=== PATIENT | male | born 1955 | race Caucasian/White ===

== ENCOUNTER 2017-10-29 08:22 | Inpatient (IN) | payer BC, OTHER ==
[2017-10-29] MEDS ORDERED: METOPROLOL TAR 50 MG TAB ONE ×2 (08:55→10:38)
[2017-10-29] MEDS ORDERED: METOPROLOL TARTRATE 5 MG/5 ML INJ IV ONE ×3 (08:55→09:32)
[2017-10-29 09:15] LABS: Absolute Lymphocytes (CBC) 2.4 K/uL (0.7-4.9); Absolute Monocytes 0.9 K/uL (0.1-1.3); Absolute Neutrophil 9.4 K/uL (1.8-8.0); Basophils % 0.8 % (0-1.3); Eosinophils % 0.8 % (0-4.4); Hematocrit 51.7 % (39.6-49.0); Lymphocytes % 18.5 % (15.3-44.8); MCH 29.5 pg (27.0-35.0); MCV 89.1 fL (80-100); Monocytes % 7.3 % (3.3-12.3)
[2017-10-29] MEDS ORDERED: ENOXAPARIN 100 MG/ML SYR SQ ONE (09:19)
[2017-10-29] MEDS ORDERED: NA CHLORIDE 0.9% 500 ML ONE ×2 (09:19→11:28)
[2017-10-29 09:21] LABS: Protime INR 1.27
[2017-10-29 09:25] LABS: Bicarbonate 26 mEq/L (21-31); Glucose Level 165 mg/dL (65-120); Potassium 3.9 mEq/L (3.6-5.0); Sodium Level 138 mEq/L (135-145)
[2017-10-29 09:31] LABS: ALT/SGPT 31 IU/L (10-60); AST/SGOT 21 IU/L (10-42); Albumin 4.2 g/dL (3.2-5.5); Alkaline Phosphatase 67 IU/L (42-121); BUN Blood Urea Nitrogen 14 mg/dL (6-20); Bilirubin Direct 0.1 mg/dL (0-0.2); Bilirubin Total 0.9 mg/dL (0.3-1.2); Creatine Phosphokinase 63 IU/L (22-269); Magnesium 1.7 mg/dL (1.8-2.5); Protein, Total 7.9 g/dL (6.0-8.3)
[2017-10-29 09:34] LABS: CKMB Creatine Kinase MB 1.6 ng/ml (0.3-4.0)
--- NOTE | 2017-10-29 09:39 | P.HP ---
Certification for Inpatient With expected LOS: >2 Midnights Patient will require the following post-hospital care: None Practitioner: I am a practitioner with admitting privileges, knowledge of patient current condition, hospital course, and medical plan of care. Services: Services provided to patient in accordance with Admission requirements found in Title 42 Section 412.3 of the Code of Federal Regulations <Ariadna Rojo - Last Filed: 10/29/17 09:54> Patient admitted to: Inpatient With expected LOS: >2 Midnights Patient will require the following post-hospital care: None Practitioner: I am a practitioner with admitting privileges, knowledge of patient current condition, hospital course, and medical plan of care. Services: Services provided to patient in accordance with Admission requirements found in Title 42 Section 412.3 of the Code of Federal Regulations <Kostas Vera - Last Filed: 10/29/17 14:10> Patient History Date of Service: 10/29/17 Primary Care Provider: Dr. Anguiano Reason for admission: New onset A. fib History of Present Illness: Pt states he went to his PCP for a "chest cold". Pt was told at that time that his heart rate was irregular. Pt give Rx for Z-max and was advised to go to ED. Pt states his cough is improving but he has taken his blood pressure several times and noted his HR to be consistently in the 140s Home medications list reviewed: Yes (Anaphylaxis to Morphine) - Past Medical/Surgical History Has patient received pneumonia vaccine in the past: No Diabetic: No -: Hypertension -: "borderline" DM -: Hyperlipidemia -: right great toe surgery Psychosocial/ Personal History: Pt is and lives in [place]. Pt retired last year. Active lifestyle. Prefers not to fly. - Family History Family History: Reviewed- Non-Contributory (Pt was adopted at . Recently met a Sister. States family hx of a. fib but otherwise not much information. Father at 86yo and Mother fell and had head bleed and at 80yo) - Social History Smoking Status: Never smoker Alcohol use: Yes CD- Drugs: No Caffeine use: Yes Place of Residence: Home <Ariadna Rojo - Last Filed: 10/29/17 09:54> Date of Service: 10/29/17 History of Present Illness: 62-year-old male presented emergency room with shortness of breath and irregular heartbeat. Patient recently evaluated by his PCP last week. Told that he had an upper respiratory infection. He was given Zithromax. His shortness of breath and cough worsened. Blood pressures were elevated at home. Heart rate also elevated. Patient came to the ER for further evaluation. In the ER patient was found to be in new onset atrial fibrillation with RVR. Rate around 150. Patient given multiple doses of beta-oliver therapy. Chest x- ray shows no pneumonia. Patient was admitted for treatment. Home medications list reviewed: Yes - Past Medical/Surgical History Has patient received pneumonia vaccine in the past: No Diabetic: No -: Pre diabetes -: Obesity - Family History Mother History Unknown: Yes -: Heart disease Father History Unknown: Yes -: Cancer Notes: Prostate/bladder CA - Social History Smoking Status: Never smoker Alcohol use: Yes CD- Drugs: No Caffeine use: Yes Place of Residence: Home <Kostas Vera - Last Filed: 10/29/17 14:10> Allergies morphine Allergy (Verified 10/29/17 12:14) Unknown Home Medications: Aspirin [Aspirin EC 81 MG] 1 tab PO DAILY 10/29/17 Atorvastatin Calcium [Lipitor] 40 mg PO BEDTIME 10/29/17 Azithromycin Tab [Zithromax*] 1 tab PO DAILY 10/29/17 Multivitamin [One Daily Multivitamin] 1 each PO DAILY 10/29/17 Hope-3/Dha/Epa/Fish Oil [Fish Oil 500 mg Softgel] 1 cap PO DAILY 10/29/17 Review of Systems General: Sweats, Malaise Eyes: Unremarkable ENT: Ear Pain, Nose Congestion Respiratory: Cough, Other (recent productive cough) Cardiovascular: Palpitations Gastrointestinal: Unremarkable Genitourinary: Unremarkable Musculoskeletal: Unremarkable Integumentary: Unremarkable Neurological: Unremarkable Lymphatics: Unremarkable <Ariadna Rojo - Last Filed: 10/29/17 09:54> General: Sweats, Malaise Eyes: Unremarkable ENT: Ear Pain, Nose Congestion Respiratory: Cough, Shortness of Breath, Other Cardiovascular: Palpitations Gastrointestinal: Unremarkable Genitourinary: Unremarkable Musculoskeletal: Unremarkable Integumentary: Unremarkable Neurological: Unremarkable Lymphatics: Unremarkable <Kostas Vera - Last Filed: 10/29/17 14:10> Physical Examination - Vital Signs Temperature: 98.2 F Blood Pressure: 141/115 Pulse: 146 Respirations: 20 Pulse Ox (%): 98 - Physical Exam General: In no apparent distress, Other (mildly diaphoretic) HEENT: Atraumatic, Normocephalic, Mucous membr. moist/pink Neck: Supple, JVD not distended Respiratory: Clear to auscultation bilaterally, Normal air movement Cardiovascular: No edema, Normal pulses, Other (RVR), Irregular heart rate/ rhythm Capillary refill: <2 Seconds Gastrointestinal: Normal bowel sounds, Soft and benign, Non-distended Musculoskeletal: No clubbing, No erythema Integumentary: No rashes, No breakdown Neurological: Normal gait Lymphatics: No axilla or inguinal lymphadenopathy External genitalia: Deferred Rectal: Deferred - Studies Laboratory Data (last 24 hrs) 10/29/17 08:50: PT 15.0 H, INR 1.27, APTT 33.4 10/29/17 08:50: WBC 12.9 H, Hgb 17.1, Hct 51.7 H, Plt Count 266 10/29/17 08:50: Sodium 138, Potassium 3.9, BUN 14, Creatinine 0.83, Glucose 165 H, Magnesium 1.7 L, Total Bilirubin 0.9, AST 21, ALT 31, Alkaline Phosphatase 67 <Ariadna Rojo - Last Filed: 10/29/17 09:54> - Physical Exam General: Alert, In no apparent distress, Oriented x3, Cooperative, Other HEENT: Atraumatic, Normocephalic, Mucous membr. moist/pink Neck: Supple, JVD not distended Respiratory: Crackles/rales (Crackles to the bases bilateral) Cardiovascular: Other, Irregular heart rate/rhythm (Atrial fibrillation rate around 120) Capillary refill: <2 Seconds Gastrointestinal: Normal bowel sounds, Soft and benign, Non-distended, No ascites, No tenderness, No masses, No rebound, No guarding Musculoskeletal: No clubbing, No erythema, No tenderness, No warmth Integumentary: No rashes, No breakdown, No tenderness/swelling, No erythema, No warmth, No cyanosis Neurological: Normal gait, Normal speech, Normal strength at 5/5 x4 extr, Normal tone, Normal affect Lymphatics: No axilla or inguinal lymphadenopathy - Studies Laboratory Data (last 24 hrs) 10/29/17 08:50: PT 15.0 H, INR 1.27, APTT 33.4 10/29/17 08:50: WBC 12.9 H, Hgb 17.1, Hct 51.7 H, Plt Count 266 10/29/17 08:50: B-Natriuretic Peptide 150 H 10/29/17 08:50: Sodium 138, Potassium 3.9, BUN 14, Creatinine 0.83, Glucose 165 H, Magnesium 1.7 L, Total Bilirubin 0.9, AST 21, ALT 31, Alkaline Phosphatase 67 <Kostas Vera - Last Filed: 10/29/17 14:10> Assessment and Plan - Problems (Diagnosis) (1) Atrial fibrillation Onset Date: Unknown Current Visit: Yes Status: Acute Plan: Metoprolol 5mg IV x 3 in ED. No immediate change. Will transition to po. Lovenox 100mg SC in ED. Will contine. TSH eval pending, will monitor results. Consult Cardiology. Qualifiers: Atrial fibrillation type: persistent Qualified Code(s): I48.1 - Persistent atrial fibrillation (2) Upper respiratory infection Onset Date: ~10/26/17 Current Visit: Yes Status: Acute Plan: Continue antibiotics. Pt has taken three days of Z-max po, feels improved since initial dose. Will finish z-max course. No pneumonia documented on Chest film. Advanced imaging results pending. Qualifiers: URI type: unspecified viral URI Qualified Code(s): J06.9 - Acute upper respiratory infection, unspecified (3) Hypertension Current Visit: Yes Status: Acute Plan: Will start on Metoprolol 50mg po as reassess Qualifiers: Hypertension type: essential hypertension Qualified Code(s): I10 - Essential (primary) hypertension - Plan Will monitor inpatient. Consult Cardiology. Start pt on stable hypertension treatment plan. Discharge to home with stable v.s. and anticoagulation with Cardiology follow up - Advance Directives Does patient have a Living Will: No Does patient have a Durable POA for Healthcare: No - Code Status/Comfort Care Code Status Assessed: Yes Code Status: Full Code Time Spent Managing Pts Care (In Minutes): 30 <Ariadna Rojo - Last Filed: 10/29/17 09:54> - Problems (Diagnosis) (1) Hyperlipidemia Current Visit: Yes Status: Chronic Plan: Will continue with his medication. Will check fasting lipid panel. Qualifiers: Hyperlipidemia type: unspecified Qualified Code(s): E78.5 - Hyperlipidemia , unspecified (2) Palpitation Current Visit: Yes Status: Acute Plan: Palpitations secondary to new onset atrial fibrillation with RVR. Patient given multiple doses of IV in beta-olievr. Case discussed at length with cardiology. Patient be started on Betapace 80 mg 1 pill twice daily. Lovenox 1 milligram/kilogram subcu twice daily has been initiated. Will continue monitor patient closely. Will monitor on telemetry. Will order echocardiogram. Will maintain sats above 90%. Will monitor electrolytes closely. (3) Shortness of breath Current Visit: Yes Status: Acute Plan: Continue as above. Suspect possible CHF. Will provide Lasix IV twice daily. Will check echocardiogram. Will recheck chest x-ray in the morning. Will maintain sats above 90%. (4) CHF (congestive heart failure) Current Visit: Yes Status: Suspected Plan: Suspect CHF. Will start IV Lasix. Will teach on 1500 cc per day fluid restriction. Will recheck chest x-ray in the morning. Echocardiogram ordered. Qualifiers: Heart failure type: systolic Heart failure chronicity: acute on chronic Qualified Code(s): I50.23 - Acute on chronic systolic (congestive) heart failure (5) Obesity Current Visit: Yes Status: Chronic Plan: Will teach on lifestyle modification education. Qualifiers: Obesity type: due to excess calories Obesity classification: adult class 1 (BMI 30 - 34.9) Serious obesity comorbidity presence: with serious comorbidity Body mass index: BMI 31.0-31.9 Qualified Code(s): E66.09 - Other obesity due to excess calories; Z68.31 - Body mass index (BMI) 31.0-31.9, adult (6) Atrial fibrillation Onset Date: Unknown Current Visit: Yes Status: Acute Plan: New onset atrial fibrillation with RVR. Patient given IV metoprolol in ER. Case discussed with cardiology. Will start Betapace 80 mg 1 pill twice daily. Lovenox 1 milligram/kilogram subcu twice daily initiated. Will check lab. Echocardiogram ordered. Await further recommendations from cardiology. Will monitor closely on telemetry. At discharge if patient stable on Betapace, he will continue with medication. Patient will likely need chronic anti coagulation therapy. Qualifiers: Atrial fibrillation type: persistent Qualified Code(s): I48.1 - Persistent atrial fibrillation (7) Hypertension Current Visit: Yes Status: Acute Plan: Patient started on sotalol for atrial fibrillation. Will monitor blood pressures closely Qualifiers: Hypertension type: essential hypertension Qualified Code(s): I10 - Essential (primary) hypertension (8) Upper respiratory infection Onset Date: ~10/26/17 Current Visit: Yes Status: Acute Plan: Patient may have had viral upper respiratory infection. Will check for influenza and Streptococcus. Will discontinue Zithromax since the patient will be on sotalol. Will recheck chest x-ray in the morning. Patient may have underlying CHF. Patient being treated for CHF at this time. Patient with atrial fibrillation. Qualifiers: URI type: unspecified viral URI Qualified Code(s): J06.9 - Acute upper respiratory infection, unspecified - Plan Continue as above. Discharge Plan: Home Plan to discharge in: 48 Hours - Advance Directives Does patient have a Living Will: No Does patient have a Durable POA for Healthcare: No - Code Status/Comfort Care Code Status Assessed: Yes Code Status: Full Code Time Spent Managing Pts Care (In Minutes): 55 <Kostas Vera - Last Filed: 10/29/17 14:10>
--- NOTE | 2017-10-29 09:58 | EDPHYS ---
Physician Documentation [facility] Name: Onesimo Estes Age: 62 yrs Sex: Male : 1955 Arrival Date: 10/29/2017 Time: 08:24 Bed 5 Private MD: Mikal Anguiano E ED Physician Villa Presley HPI: 10/29 08:53 This 62 yrs old Male presents to ER via Ambulatory with complaints of Ear cp Pain, Irregular Heart Beat. 08:53 The patient presents with a history of irregular heart beat. cp 08:53 Context: The symptoms occur without known cause. Onset: The symptoms/episode cp began/occurred at an unknown time. Duration: The patient or guardian reports a single episode, that is still ongoing, and unchanged. Associated signs and symptoms: Pertinent positives: cough, right ear pain, Pertinent negatives: chest pain, fever, syncope, near-syncope, abdominal pain. Severity of symptoms: in the emergency department the symptoms are unchanged. The patient has not experienced similar symptoms in the past. Historical: - Allergies: 08:51 Morphine; iw - Immunization history:: Adult Immunizations unknown. - Ebola Screening: : No symptoms or risks identified at this time. - Social history:: Smoking status: Patient/guardian denies using tobacco, Patient uses alcohol, on a daily basis. claims drinking about a 6 pack/day. ROS: 09:01 Eyes: Negative for injury, pain, redness, and discharge. cp 09:01 Constitutional: Negative for body aches, chills, fever, poor PO intake. 09:01 ENT: Positive for drainage from ear(s), ear pain, Negative for sore throat, difficulty swallowing, difficulty handling secretions. 09:01 Cardiovascular: Positive for palpitations, Negative for chest pain, edema. 09:01 Respiratory: Positive for cough, with no reported sputum, Negative for shortness of breath, wheezing. 09:01 Abdomen/GI: Negative for abdominal pain, nausea, vomiting, and diarrhea, constipation, black/tarry stool, rectal bleeding. 09:01 Back: Negative for pain at rest, pain with movement, radiated pain. 09:01 : Negative for urinary symptoms. 09:01 Skin: Negative for cellulitis, rash. 09:01 Neuro: Negative for altered mental status, dizziness, headache, syncope, near syncope, weakness. 09:01 All other systems are negative. Exam: 08:53 ECG was reviewed by the Attending Physician. cp 09:05 Constitutional: The patient appears in no acute distress, alert, awake, cp non-diaphoretic, non-toxic, well developed, well nourished. 09:05 Head/Face: Normocephalic, atraumatic. Eyes: Pupils equal round and reactive to light, cp extra-ocular motions intact. Lids and lashes normal. Conjunctiva and sclera are non-icteric and not injected. Cornea within normal limits. Periorbital areas with no swelling, redness, or edema. ENT: Nares patent. No nasal discharge, no septal abnormalities noted. Tympanic membranes are normal and external auditory canals are clear. Oropharynx with no redness, swelling, or masses, exudates, or evidence of obstruction, uvula midline. Mucous membranes moist. Neck: Trachea midline, no thyromegaly or masses palpated, and no cervical lymphadenopathy. Supple, full range of motion without nuchal rigidity, or vertebral point tenderness. No Meningismus. Chest/axilla: Normal chest wall appearance and motion. Nontender with no deformity. No lesions are appreciated. 09:05 Cardiovascular: Rate: tachycardic, actual rate is 143 bpm, Rhythm: regular, Pulses: Pulses are 2+ in right radial artery and left radial artery. Edema: is not appreciated, JVD: is not appreciated. 09:05 Respiratory: the patient does not display signs of respiratory distress, Respirations: normal, no use of accessory muscles, no retractions, no splinting, no tachypnea, labored breathing, is not present, Breath sounds: are clear throughout, no decreased breath sounds, no stridor, no wheezing. 09:05 Abdomen/GI: Inspection: abdomen appears normal, Bowel sounds: active, all quadrants, cp Palpation: abdomen is soft and non-tender, in all quadrants. 09:05 Back: pain, is absent, ROM is normal. 09:05 Musculoskeletal/extremity: Exam is negative for calf tenderness, edema, injury. 09:05 Skin: cellulitis, is not appreciated, no rash present. 09:05 Neuro: Orientation: to person, place \T\ time. Mentation: lucid, able to follow commands, Cerebellar function: is grossly normal, Motor: moves all fours, strength is normal, Sensation: is normal. Vital Signs: 08:48 BP 141 / 115; Pulse 146; Resp 20 S; Pulse Ox 98% on R/A; iw 08:50 BP 158 / 115; Pulse 146; Resp 16; Pulse Ox 98% ; jl7 09:00 BP 139 / 115; Pulse 143; Resp 16; Pulse Ox 98% ; jl7 09:05 Temp 98.2(O); Weight 108.86 kg (R); jl7 09:15 BP 153 / 125; Pulse 144; Resp 16; Pulse Ox 98% ; jl7 09:24 BP 143 / 117; Pulse 141; Resp 16; Pulse Ox 97% ; jl7 09:30 BP 138 / 110; Pulse 141; Resp 16; Pulse Ox 97% ; jl7 10:30 BP 147 / 125; Pulse 135; Resp 18; Pulse Ox 98% ; ae1 10:45 BP 144 / 110; Pulse 130; Resp 18; Pulse Ox 98% ; ae1 11:00 BP 140 / 101; Pulse 138; Resp 18; Pulse Ox 97% ; ae1 11:15 BP 127 / 108; Pulse 136; Resp 18; Pulse Ox 98% ; jl7 11:30 BP 147 / 114; Pulse 137; Resp 18; Pulse Ox 98% ; jl7 11:45 BP 135 / 96; Pulse 139; Resp 16; Pulse Ox 98% ; jl7 MDM: 08:30 Patient medically screened. 09:05 Data interpreted: child monitor: rate is 146 beats/min, rhythm is atrial flutter, cp Pulse oximetry: on room air is 98 %. Interpretation: normal. Plan: O2 by NC applied. Test interpretation: by ED physician or midlevel provider: ECG. 09:55 Data reviewed: vital signs, nurses notes, lab test result(s), EKG, radiologic studies, cp plain films. 09:55 Physician consultation: Ariadna JACOBO was contacted at 09:55, regarding cp admission, to the telemetry unit. patient's condition, and will see patient in ED, shortly. 10/29 08:43 Order name: Basic Metabolic Panel 10/29 08:43 Order name: BNP; Complete Time: 09:45 cp 10/29 09:45 Interpretation: Abnormal: BNP 150. 10/29 08:43 Order name: CBC with Diff; Complete Time: 09:31 10/29 09:46 Interpretation: Normal except: WBC 12.9; RBC 5.80; HCT 51.7. cp 10/29 08:43 Order name: Ckmb cp 10/29 08:43 Order name: CPK cp 10/29 08:43 Order name: LFT's cp 10/29 08:43 Order name: Magnesium cp 10/29 09:46 Interpretation: Abnormal: MG 1.7. cp 10/29 08:43 Order name: PT-INR; Complete Time: 09:31 cp 10/29 08:43 Order name: Ptt, Activated; Complete Time: 09:31 cp 10/29 08:43 Order name: Troponin (emerg Dept Use Only); Complete Time: 09:45 cp 10/29 09:45 Interpretation: TROPED < 0.03; Reviewed. cp 10/29 08:43 Order name: XRAY Chest (1 view); Complete Time: 11:46 cp 10/29 08:43 Order name: TSH cp 10/29 08:43 Order name: T3 Free cp 10/29 09:32 Order name: CT Chest For PE Angio; Complete Time: 10:34 snw 10/29 08:43 Order name: EKG; Complete Time: 08:44 cp 10/29 08:43 Order name: Cardiac monitoring; Complete Time: 11:04 cp 10/29 08:43 Order name: EKG - Nurse/Tech; Complete Time: 11:04 cp 10/29 08:43 Order name: IV Saline Lock; Complete Time: 11:04 cp 10/29 08:43 Order name: Labs collected and sent; Complete Time: 11:04 cp 10/29 08:43 Order name: O2 Per Protocol; Complete Time: 11:04 cp 10/29 08:43 Order name: O2 Sat Monitoring; Complete Time: 11:04 cp EC:53 Rate is 147 beats/min. Rhythm is regular. QRS interval is normal. QT interval is cp normal. Interpreted by me. Reviewed by me. Administered Medications: 08:51 Drug: Metoprolol 50 mg Route: PO; jl7 11:04 Follow up: Response: No adverse reaction; No change in condition ae1 08:53 Drug: Metoprolol 5 mg Route: IVP; Site: right antecubital; jl7 11:03 Follow up: Response: No adverse reaction; No change in condition ae1 09:21 Drug: NS 0.9% 500 ml Route: IV; Rate: bolus; Site: right antecubital; ae1 11:34 Follow up: IV Status: Completed infusion jl7 09:21 Drug: Metoprolol 5 mg Route: IVP; Site: right antecubital; ae1 09:24 Drug: Lovenox 1 mg/kg Route: Sub-Q; Site: left lower abdomen; ae1 11:03 Follow up: Response: No adverse reaction ae1 09:30 Drug: Metoprolol 5 mg Route: IVP; Site: right antecubital; jl7 11:03 Follow up: Response: No adverse reaction; No change in condition ae1 10:38 Drug: Metoprolol 50 mg Route: PO; jl7 11:02 Follow up: Response: No adverse reaction ae1 10:40 Drug: LevaQUIN 750 mg Volume: 150 ml; Route: IVPB; Infused Over: 90 mins; Site: right jl7 antecubital; 12:01 Follow up: IV Status: Completed infusion jl7 11:02 Not Given (Pt admitted to floor): NS 0.9% 1000 ml IV at 100 ml/hr continuous ae1 11:03 Not Given (pt admitted to floor): NS 0.9% 500 ml IV at bolus once ae1 11:34 Not Given (Physician Discretion): Cardizem 10 mg IVP once; Over 2 minutes jl7 11:34 Drug: NS 0.9% 500 ml Route: IV; Rate: bolus; Site: right antecubital; jl7 12:01 Follow up: IV Status: Completed infusion jl7 11:55 Drug: Betapace 80 mg Route: PO; jl7 12:01 Follow up: Response: Other; Administered at admission jl7 Disposition: 10/29/17 09:57 Hospitalization ordered by Kostas Vera for Inpatient Admission. Preliminary diagnosis is Unspecified atrial flutter. - Bed requested for Telemetry/MedSurg (Inpatient). - Status is Inpatient Admission. jl7 - Condition is Stable. - Problem is new. - Symptoms have improved. UTI on Admission? No Addendum: 11/06/2017 11:52 Co-signature as Attending Physician, Villa Presley MD Available for consultation at p s1 all times. . Signatures: Dispatcher [employer] Luli Levy RN RN Ariadna Pino, PV DESIGN ENGINEER-C PV DESIGN ENGINEER-Csnw Nancy Holguin, RN RN iw [place] PA PA cp Terry Bennett, RN RN ae1 Yomi Moe RN RN jl7 Villa Presley MD MD ps1 Corrections: (The following items were deleted from the chart) 10/29 10:21 09:57 Hospitalization Ordered by Kostas Vera DO for Inpatient Admission. Preliminary dw diagnosis is Unspecified atrial flutter. Bed requested for Telemetry/MedSurg (Inpatient). Status is Inpatient Admission. Condition is Stable. Problem is new. Symptoms have improved. UTI on Admission? No. cp 12:03 10:21 10/29/2017 09:57 Hospitalization Ordered by Kostas Vera DO for Inpatient jl7 Admission. Preliminary diagnosis is Unspecified atrial flutter. Bed requested for Telemetry/MedSurg (Inpatient). Status is Inpatient Admission. Condition is Stable. Problem is new. Symptoms have improved. UTI on Admission? No. dw
--- NOTE | 2017-10-29 09:58 | ER ---
Nurse's Notes [facility] Name: Onesimo Estes Age: 62 yrs Sex: Male : 1955 Arrival Date: 10/29/2017 Time: 08:24 Bed 5 Private MD: Mikal Anguiano E Diagnosis: Unspecified atrial flutter Presentation: 10/29 08:37 Presenting complaint: Patient states: had a chest cold last week, was put on iw azithromycin, has had SOB and also pain in right ear, was told by the doctor that he had irregular heart rate and was told he needed to get it checked out, no hx of Afib. Transition of care: patient was not received from another setting of care. Onset of symptoms was October 26, 2017. Risk Assessment: Do you want to hurt yourself or someone else? Patient reports no desire to harm self or others. Initial Sepsis Screen: Does the patient meet any 2 criteria? No. Patient's initial sepsis screen is negative. Does the patient have a suspected source of infection? No. Patient's initial sepsis screen is negative. Care prior to arrival: None. 08:37 Method Of Arrival: Ambulatory 08:37 Acuity: JOANN 2 iw Historical: - Allergies: 08:51 Morphine; iw - Immunization history:: Adult Immunizations unknown. - Ebola Screening: : No symptoms or risks identified at this time. - Social history:: Smoking status: Patient/guardian denies using tobacco, Patient uses alcohol, on a daily basis. claims drinking about a 6 pack/day. Screenin:40 Abuse screen: Denies threats or abuse. Denies injuries from another. Nutritional jl7 screening: No deficits noted. Tuberculosis screening: No symptoms or risk factors identified. Fall Risk IV access (20 points). Total [place] Fall Scale indicates No Risk (0-24 pts). Assessment: 08:45 General: Appears uncomfortable, Behavior is calm, cooperative, appropriate for age. jl7 Pain: Complains of pain in right ear Pain does not radiate. Pain currently is 1 out of 10 on a pain scale. Quality of pain is described as throbbing, Pain began 2-3 days ago. Is continuous. Neuro: Level of Consciousness is awake, alert, obeys commands, Oriented to person, place, time, situation. Cardiovascular: Denies chest pain, shortness of breath, Heart tones present Skin is clammy and diaphoretic . Rhythm is atrial flutter 2:1 Chest pain is denied. Respiratory: Airway is patent Respiratory effort is even, unlabored, Respiratory pattern is regular, symmetrical. GI: No signs and/or symptoms were reported involving the gastrointestinal system. : No signs and/or symptoms were reported regarding the genitourinary system. EENT: Reports pain in right ear. Derm: Skin is clammy, diaphoretic, Skin is flushed, Skin temperature is warm. Musculoskeletal: No signs and/or symptoms reported regarding the musculoskeletal system. 10:00 Reassessment: No changes from previously documented assessment. Patient and/or family jl7 updated on plan of care and expected duration. Pain level reassessed. Patient is alert, oriented x 3, equal unlabored respirations, skin warm/dry/pink. 11:20 Reassessment: Ariadna Rojo NP ordered to hold Cardizem and administer one more [address] jl[address] NS bolus[address]. Kern will manage medications from this point. Vital Signs: 08:48 BP 141 / 115; Pulse 146; Resp 20 S; Pulse Ox 98% on R/A; iw 08:50 BP 158 / 115; Pulse 146; Resp 16; Pulse Ox 98% ; jl7 09:00 BP 139 / 115; Pulse 143; Resp 16; Pulse Ox 98% ; jl7 09:05 Temp 98.2(O); Weight 108.86 kg (R); jl7 09:15 BP 153 / 125; Pulse 144; Resp 16; Pulse Ox 98% ; jl7 09:24 BP 143 / 117; Pulse 141; Resp 16; Pulse Ox 97% ; jl7 09:30 BP 138 / 110; Pulse 141; Resp 16; Pulse Ox 97% ; jl7 10:30 BP 147 / 125; Pulse 135; Resp 18; Pulse Ox 98% ; ae1 10:45 BP 144 / 110; Pulse 130; Resp 18; Pulse Ox 98% ; ae1 11:00 BP 140 / 101; Pulse 138; Resp 18; Pulse Ox 97% ; ae1 11:15 BP 127 / 108; Pulse 136; Resp 18; Pulse Ox 98% ; jl7 11:30 BP 147 / 114; Pulse 137; Resp 18; Pulse Ox 98% ; jl7 11:45 BP 135 / 96; Pulse 139; Resp 16; Pulse Ox 98% ; jl7 ED Course: 08:24 Patient arrived in ED. tw2 08:24 Richard Erazo LVN is Primary Nurse. em 08:26 Mikal Anguiano MD is Private Physician. mr 08:30 Des Collins PA is PHCP. cp 08:30 Villa Presley MD is Attending Physician. cp 08:32 Yomi Moe, ALVINO is Primary Nurse. jl7 08:48 Triage completed. iw 08:50 Patient has correct armband on for positive identification. Placed in gown. Bed in low jl7 position. Call light in reach. Side rails up X 1. playground monitor on. Pulse ox on. NIBP on. 08:50 Initial lab(s) drawn, by me, sent to lab. Inserted saline lock: 20 gauge in right jl7 antecubital area, using aseptic technique. Blood collected. 09:03 X-ray completed. Portable x-ray completed in exam room. Patient tolerated procedure la2 well. 09:04 XRAY Chest (1 view) In Process Unspecified. EDMS 09:40 Arm band placed on right wrist. jl7 09:57 Kostas Vera DO is Hospitalizing Provider. cp 10:04 CT completed. Patient tolerated procedure well. Patient moved back from CT. cw1 10:05 CT Chest For PE Angio In Process Unspecified. EDMS 12:02 No provider procedures requiring assistance completed. Patient admitted, IV remains in jl7 place. Administered Medications: 08:51 Drug: Metoprolol 50 mg Route: PO; jl7 11:04 Follow up: Response: No adverse reaction; No change in condition ae1 08:53 Drug: Metoprolol 5 mg Route: IVP; Site: right antecubital; jl7 11:03 Follow up: Response: No adverse reaction; No change in condition ae1 09:21 Drug: NS 0.9% 500 ml Route: IV; Rate: bolus; Site: right antecubital; ae1 11:34 Follow up: IV Status: Completed infusion jl7 09:21 Drug: Metoprolol 5 mg Route: IVP; Site: right antecubital; ae1 09:24 Drug: Lovenox 1 mg/kg Route: Sub-Q; Site: left lower abdomen; ae1 11:03 Follow up: Response: No adverse reaction ae1 09:30 Drug: Metoprolol 5 mg Route: IVP; Site: right antecubital; jl7 11:03 Follow up: Response: No adverse reaction; No change in condition ae1 10:38 Drug: Metoprolol 50 mg Route: PO; jl7 11:02 Follow up: Response: No adverse reaction ae1 10:40 Drug: LevaQUIN 750 mg Volume: 150 ml; Route: IVPB; Infused Over: 90 mins; Site: right jl7 antecubital; 12:01 Follow up: IV Status: Completed infusion jl7 11:02 Not Given (Pt admitted to floor): NS 0.9% 1000 ml IV at 100 ml/hr continuous ae1 11:03 Not Given (pt admitted to floor): NS 0.9% 500 ml IV at bolus once ae1 11:34 Not Given (Physician Discretion): Cardizem 10 mg IVP once; Over 2 minutes jl7 11:34 Drug: NS 0.9% 500 ml Route: IV; Rate: bolus; Site: right antecubital; jl7 12:01 Follow up: IV Status: Completed infusion jl7 11:55 Drug: Betapace 80 mg Route: PO; jl7 12:01 Follow up: Response: Other; Administered at admission jl7 Outcome: 09:57 Decision to Hospitalize by Provider. cp 11:37 Admitted to Tele accompanied by tech, family with patient, via wheelchair, room 232, jl7 with chart, Report called to Nurse 11:37 Condition: stable 11:37 Discharge instructions given to patient, Instructed on the need for admit, Demonstrated understanding of instructions. 12:03 Patient left the ED. jl7 Signatures: Dispatcher [employer] Elvi Brownoz, Richard, OUTBOUND SALES CONSULTANT OUTBOUND SALES CONSULTANT Nancy Hobson, Tory Sewell RN cw1 Des Collins PA PA Alee Call, RN RN tw2 Terry Bennett RN RN ae1 Yomi Moe RN RN jl7 Michelle Damon
[2017-10-29 10:04] LABS: Thyroid Stimulating Hormone 1.48 uIU/mL (0.34-5.60)
--- NOTE | 2017-10-29 10:27 | RAD REPORT ---
EXAM DESCRIPTION: CT - Chest For Pe Angio - 10/29/2017 10:05 am CLINICAL HISTORY: Chest pain, shortness of breath COMPARISON: Chest films same date TECHNIQUE: Dynamically enhanced 3 mm thick images of the chest were obtained during administration o f approximately 150mL Isovue 370 IV contrast. Coronal and oblique reconstruction images were generate d and reviewed. Exam utilizes a protocol to evaluate the pulmonary arterial tree. All CT scans are performed using dose optimization technique as appropriate and may include automated exposure control or mA/KV adjustment according to patient size. FINDINGS: No pulmonary emboli are identified. Aortic assessment is limited. No gross aortic abnormalities seen. No pericardial thickening or effusi on. Mid and upper lung melvin are clear minimal focal opacification in the medial right lung base and lef t lung base opacification near the elevated hemidiaphragm. This is favored to be atelectasis. No endo bronchial lesion. No pleural effusion or pleural thickening. No mediastinal or hilar suspicious masses. No chest wall masses or abnormal axillary lymphadenopathy. IMPRESSION: No pulmonary emboli identified. Left greater than right lung base opacification favored to be atelectasis over pneumonia. Correlation is needed with any acute lung base symptoms.
[2017-10-29] MEDS ORDERED: Levofloxacin 750mg IV 750 MG/150 ML BAG IV ONE (10:39)
--- NOTE | 2017-10-29 11:32 | RAD REPORT ---
EXAM DESCRIPTION: RAD - Chest Single View - 10/29/2017 9:04 am CLINICAL HISTORY: Irregular heart rate, shortness of breath COMPARISON: None. TECHNIQUE: AP portable chest image was obtained 0902 hours . FINDINGS: No focal lung parenchymal process. No failure or volume overload. Left hemidiaphragm is el evated. Lung base infiltrate or atelectasis could be masked in this setting. Heart and vasculature ar e normal. No measurable pleural effusion and no pneumothorax. No gross bony abnormality seen. No acut e aortic findings suspected. IMPRESSION: No acute cardiopulmonary finding seen on portable examination.
[2017-10-29] MEDS ORDERED: SOTALOL HCL 80 MG TAB ONE (11:54)
[2017-10-29] MEDS ORDERED: ACETAMINOPHEN 500 MG TAB PO PRN (12:11)
[2017-10-29] MEDS: SOTALOL HCL 80 MG TAB PO SCH ×2 (12:11→17:15)
[2017-10-29] MEDS ORDERED: AZITHROMYCIN 250 MG TAB PO ONE (12:11)
[2017-10-29 12:36] VITALS: BMI 31.6
[2017-10-29] MEDS: FUROSEMIDE 20 MG/ 2ML VIAL IV SCH (17:15)
[2017-10-29] MEDS: ENOXAPARIN 100 MG/ML SYR SQ SCH (20:26)
[2017-10-29] MEDS ORDERED: ATORVASTATIN 40 MG TAB PO SCH (21:00)
[2017-10-29 22:26] VITALS: O2SAT 96
[2017-10-30 03:37] LABS: T3 Free 3.79 pg/ml (2.84-4.24)
[2017-10-30 05:15] LABS: Absolute Lymphocytes (CBC) 2.1 K/uL (0.7-4.9); Absolute Monocytes 0.8 K/uL (0.1-1.3); Absolute Neutrophil 6.8 K/uL (1.8-8.0); Basophils % 0.7 % (0-1.3); Eosinophils % 1.1 % (0-4.4); Hematocrit 47.9 % (39.6-49.0); Lymphocytes % 21.7 % (15.3-44.8); MCV 88.6 fL (80-100); Monocytes % 7.8 % (3.3-12.3); RBC Red Blood Cell Count 5.41 M/uL (4.33-5.43)
[2017-10-30] MEDS: SOTALOL HCL 80 MG TAB PO SCH (05:40)
[2017-10-30 05:53] LABS: BUN Blood Urea Nitrogen 14 mg/dL (6-20); Bicarbonate 24 mEq/L (21-31); Glucose Level 140 mg/dL (65-120); HDL Cholesterol 30 mg/dL (27-67); LDL Cholesterol, Calculated 63 (<130); Magnesium 1.7 mg/dL (1.8-2.5); Potassium 3.9 mEq/L (3.6-5.0); Sodium Level 140 mEq/L (135-145)
--- NOTE | 2017-10-30 05:59 | CON ---
Date of Consultation: 10/29/[address] Vera on 10/29/2017. I saw the patient on 10/29/2017. Reason For Consultation: Atrial fibrillation. History Of Present Illness: Mr. Estes is a 62-year-old white male with history of dyslipidemia, alc ohol abuse, who came in with palpitations, irregular heartbeat, some shortness of breath, some diapho resis, some fatigue, dyspnea on exertion, was found to have an atrial fibrillation and was admitted f or further evaluation and treatment. He denies any nausea or vomiting. Denied any syncope. Denied any fever or chills. It is possible according to him and his that his symptoms may have been go ing on for about 3-4 months. Past Medical History: Otherwise negative. Allergies: MORPHINE. Review of Systems: Negative. Social History: Positive for drinking 8-10 beers a day. Family History: Positive for atrial fibrillation. Home Medications: Aspirin, Lipitor, and fish oil. Physical Examination: Vital Signs: He was in atrial fibrillation to flutter at the rate of 70s to 90s. I's and O's and O2 saturations were adequate. His vital signs were otherwise stable. Blood pressure is 127/74. HEENT: Negative. Neck: Supple without any bruit, lymphadenopathy, JVD, or thyromegaly. Chest: Clear to auscultation and percussion. Cardiac: Revealed a regular rhythm and rate without any murmurs, gallops, or rubs. Abdomen: Benign. Extremities: Revealed no clubbing, cyanosis, or edema. Diagnostic Data: Fairly unremarkable. His BNP was 150. Troponins were negative. His glucose was 6 5. Initial white count was slightly elevated. His chest x-ray was normal. Impression And Plan: New onset atrial fibrillation. I am hoping this is not an alcoholic cardiomyop athy. The patient has had some symptoms that are concerning including some dyspnea on exertion and f atigue as well as diaphoresis. For now, we will treat him with Lovenox, Betapace and see how he does over the next day or so after 3 dosages. He will then be discharged on Betapace and Xarelto. He wi ll be recommended to quit alcohol if possible. I will see him in the office in the very near future. He will have an echocardiogram to determine what his ejection fraction is. He probably also need t o have a stress test and then we will plan a cardioversion in 3 weeks if he stays in atrial fibrillat ion. His dyslipidemia is fairly well controlled. The case was discussed with Dr. Vera. DODIE Voice ID: [id number] Report ID: [id number]
[2017-10-30] MEDS ORDERED: PIPER/TAZO/NS 3.375gm 3.375 GM/100 ML BAG IVPB SCH ×2 (06:16→09:00)
[2017-10-30] MEDS ORDERED: HYDROCORTISONE SUC 100 MG INJ IV ONE (06:16)
[2017-10-30] MEDS ORDERED: PIPERACIL/TAZO 3.375 GM VIAL IV ONE (06:51)
[2017-10-30] MEDS ORDERED: NA CHLORIDE 0.9% 100 ML ONE (06:53)
[2017-10-30] MEDS ORDERED: NA CHLORIDE 0.9% 250 ML ONE (06:59)
--- NOTE | 2017-10-30 08:02 | RAD REPORT ---
EXAM DESCRIPTION: RAD - Chest Pa And Lat (2 Views) - 10/30/2017 7:21 am CLINICAL HISTORY: CHF, shortness of breath COMPARISON: October [address] chest TECHNIQUE: PA and lateral views of the chest were obtained. FINDINGS: The lungs are normal volume. CT imaging showed left greater than right lung base atelectas is. This is still present on the left. Right base is more difficult to assess. There is motion degrad ation on the lateral view. No evidence for a progressive process since the prior day. Heart size is normal and central vasculature is within normal limits. No pleural effusion or pneumothorax seen. No acute bony finding noted. No aortic abnormality. IMPRESSION: No new or progressive cardiopulmonary process. Lung base opacification is still favored to be atelectasis rather than pneumonia. No significant fail ure or volume overload.
[2017-10-30] MEDS: FUROSEMIDE 20 MG/ 2ML VIAL IV SCH (08:54)
[2017-10-30] MEDS: ENOXAPARIN 100 MG/ML SYR SQ SCH (08:55)
[2017-10-30] MEDS ORDERED: ASPIRIN EC 81 MG TAB PO SCH (09:00)
[2017-10-30] MEDS ORDERED: POLY OTIC SCH (09:00)
[2017-10-30] MEDS ORDERED: CIPROFLOXACIN/DEXAMETH OTIC 7.5 ML BTL OTIC SCH (09:00)
[2017-10-30] MEDS ORDERED: MULTIVIT W/ MINERAL TAB PO SCH (09:00)
[2017-10-30] MEDS ORDERED: NEOMYCIN OTIC SCH (09:00)
[2017-10-30] MEDS ORDERED: [UNRECOGNIZED DRUG - OTHER] OTIC SCH (09:00)
[2017-10-30 09:06] VITALS: BP 120/88
[2017-10-30 09:31] VITALS: TEMP 96.8
--- NOTE | 2017-10-30 09:31 | P.DS ---
Admission Date: 10/29/17 Discharge Date: 10/30/17 Primary Care Provider: Dr. Anguiano Disposition: ROUTINE DISCHARGE Discharge Condition: GOOD Reason for Admission: New onset A. fib Consultations: Cardiology-Dr. Melara - Problems (1) Hyperlipidemia Current Visit: Yes Status: Chronic Qualifiers: Hyperlipidemia type: unspecified Qualified Code(s): E78.5 - Hyperlipidemia , unspecified (2) Palpitation Current Visit: Yes Status: Acute (3) Shortness of breath Current Visit: Yes Status: Acute (4) CHF (congestive heart failure) Current Visit: Yes Status: Suspected Qualifiers: Heart failure type: systolic Heart failure chronicity: acute on chronic Qualified Code(s): I50.23 - Acute on chronic systolic (congestive) heart failure (5) Obesity Current Visit: Yes Status: Chronic Qualifiers: Obesity type: due to excess calories Obesity classification: adult class 1 (BMI 30 - 34.9) Serious obesity comorbidity presence: with serious comorbidity Body mass index: BMI 31.0-31.9 Qualified Code(s): E66.09 - Other obesity due to excess calories; Z68.31 - Body mass index (BMI) 31.0-31.9, adult (6) Atrial fibrillation Onset Date: Unknown Current Visit: Yes Status: Acute Qualifiers: Atrial fibrillation type: persistent Qualified Code(s): I48.1 - Persistent atrial fibrillation (7) Hypertension Current Visit: Yes Status: Acute Qualifiers: Hypertension type: essential hypertension Qualified Code(s): I10 - Essential (primary) hypertension (8) Upper respiratory infection Onset Date: ~10/26/17 Current Visit: Yes Status: Acute Qualifiers: URI type: unspecified viral URI Qualified Code(s): J06.9 - Acute upper respiratory infection, unspecified (9) Otitis externa Current Visit: Yes Status: Acute Qualifiers: Otitis externa type: unspecified type Chronicity: unspecified Laterality : right Qualified Code(s): H60.91 - Unspecified otitis externa, right ear (10) Obstructive sleep apnea Current Visit: Yes Status: Suspected (11) Alcohol use Current Visit: Yes Status: Chronic (12) Cardiomyopathy Current Visit: Yes Status: Suspected Qualifiers: Cardiomyopathy type: alcoholic Qualified Code(s): I42.6 - Alcoholic cardiomyopathy Brief History of Present Illness: 62-year-old male presented emergency room with shortness of breath and irregular heartbeat. Patient recently evaluated by his PCP last week. Told that he had an upper respiratory infection. He was given Zithromax. His shortness of breath and cough worsened. Blood pressures were elevated at home. Heart rate also elevated. Patient came to the ER for further evaluation. In the ER patient was found to be in new onset atrial fibrillation with RVR. Rate around 150. Patient given multiple doses of beta-oliver therapy. Chest x- ray shows no pneumonia. Patient was admitted for treatment. Hospital Course: Patient presented with shortness of breath, palpitations. Patient found to have atrial fibrillation. Patient seen and evaluated by Cardiology. Patient was placed on sotalol and anticoagulation therapy. Patient did well during the course of her stay. Atrial fibrillation appears chronic. Patient also with history of alcohol use. Cardiology is suspicious that the patient may have underlying alcoholic cardiomyopathy. At discharge patient will continue with sotalol 80 mg 1 pill twice daily. Patient will require chronic anti coagulation therapy-Xarelto 20 mg 1 pill daily. Education on both medications will be provided. Recommendation is for the patient to follow up with cardiology in the next 2 days to follow up this hospitalization and continue his care. Patient will require echocardiogram and cardiac stress test as an outpatient. Patient may require cardioversion in 3-4 weeks. This will be further addressed by cardiology. Education on chronic anti coagulation therapy an atrial fibrillation was provided. As mentioned above patient may have underlying alcoholic cardiomyopathy. This be further addressed by cardiology as an outpatient. Patient will need echocardiogram and cardiac stress tests with cardiology. Patient will continue with a 1500 cc per day fluid restriction and low-salt diet. Patient with history of hypertension in the past. This had not been well controlled. At this time patient will continue with sotalol as directed above. Recommendations to maintain blood pressures less 150/80. Further adjustment can be done by cardiology. Patient has hyperlipidemia. At discharge patient will continue with Lipitor 80 mg daily. Patient has history of alcohol use. Patient has been drinking 6-9 beers at a time. No withdrawal some noted at this time. Alcohol cessation addressed in detail. Patient plans to quit. This is encouraged. Patient may have underlying obstructive sleep apnea. Recommendation is for the patient to follow up with pulmonology as an outpatient to further evaluate. Patient will likely need sleep study as an outpatient to further address. Patient with recent upper respiratory infection. Influenza negative. Strep test negative. Patient appears to have right otitis externa. Medication will be provided at discharge. Vital Signs/Physical Exam: Temp Pulse Resp BP Pulse Ox 98.7 F 95 H 16 120/88 96 10/30/17 03:58 10/30/17 08:54 10/30/17 03:58 10/30/17 08:54 10/30/17 03:58 General: Alert, In no apparent distress, Oriented x3, Cooperative HEENT: Atraumatic, Other (Mild erythema and swelling to the right ear canal. Not able to visualize tympanic membrane) Neck: Supple, No Thyromegaly Respiratory: Clear to auscultation bilaterally, Normal air movement Cardiovascular: Irregular heart rate/rhythm (Atrial fibrillation) Gastrointestinal: Normal bowel sounds, Soft and benign, Non-distended, No tenderness, No masses, No rebound, No guarding Musculoskeletal: No erythema, No tenderness, No warmth Integumentary: No tenderness/swelling, No erythema, No warmth, No cyanosis Neurological: Normal speech, Normal strength at 5/5 x4 extr, Normal tone, Normal affect Lymphatics: No axilla or inguinal lymphadenopathy Laboratory Data at Discharge: WBC 9.9 K/uL (4.3-10.9) D 10/30/17 04:48 Hgb 16.2 g/dL (13.6-17.9) 10/30/17 04:48 Hct 47.9 % (39.6-49.0) 10/30/17 04:48 Plt Count 233 K/uL (152-406) 10/30/17 04:48 PT 15.0 SECONDS (9.5-12.5) H 10/29/17 08:50 INR 1.27 10/29/17 08:50 APTT 33.4 SECONDS (24.3-36.9) 10/29/17 08:50 Sodium 140 mEq/L (135-145) 10/30/17 04:48 Potassium 3.9 mEq/L (3.6-5.0) 10/30/17 04:48 BUN 14 mg/dL (6-20) 10/30/17 04:48 Creatinine 0.68 mg/dL (0.61-1.24) 10/30/17 04:48 Glucose 140 mg/dL (65-120) H 10/30/17 04:48 Magnesium 1.7 mg/dL (1.8-2.5) L 10/30/17 04:48 Total Bilirubin 0.9 mg/dL (0.3-1.2) 10/29/17 08:50 AST 21 IU/L (10-42) 10/29/17 08:50 ALT 31 IU/L (10-60) 10/29/17 08:50 Alkaline Phosphatase 67 IU/L (42-121) 10/29/17 08:50 Troponin I < 0.03 ng/mL (<0.03) 10/29/17 16:14 B-Natriuretic Peptide 150 pg/ml (<=100) H 10/29/17 08:50 Triglycerides 178 mg/dL (35-160) H 10/30/17 04:48 Cholesterol 129 mg/dL (<200) 10/30/17 04:48 HDL Cholesterol 30 mg/dL (27-67) 10/30/17 04:48 Cholesterol/HDL Ratio 4.30 10/30/17 04:48 Home Medications: Multivitamin [One Daily Multivitamin] 1 each PO DAILY 10/29/17 [place]-3/Dha/Epa/Fish Oil [Fish Oil 500 mg Softgel] 1 cap PO DAILY 10/29/17 Atorvastatin Calcium [Lipitor] 40 mg PO BEDTIME #30 tablet 10/30/17 Luis/Polym/Hc [Cortisporin 1% Otic Suspension*] 4 drops OTIC TID #1 btl 10/30/17 Rivaroxaban [Xarelto] 20 mg PO DAILY #30 tab 10/30/17 Sotalol HCl [Betapace*] 80 mg PO BID 6AM 6PM #60 tab 10/30/17 New Medications: Atorvastatin Calcium [Lipitor] 40 mg PO BEDTIME #30 tablet Luis/Polym/Hc [Cortisporin 1% Otic Suspension*] 4 drops OTIC TID #1 btl Rivaroxaban [Xarelto] 20 mg PO DAILY #30 tab Sotalol HCl [Betapace*] 80 mg PO BID 6AM 6PM #60 tab Patient Discharge Instructions: 1. Patient will need a follow up with his PCP in 1 week to follow up this hospitalization. 2. Patient presented with shortness of breath, palpitations. Patient found to have atrial fibrillation. Patient seen and evaluated by Cardiology. Patient was placed on sotalol and anticoagulation therapy. At discharge patient will continue with sotalol 80 mg 1 pill twice daily. Patient will require chronic anti coagulation therapy- Xarelto 20 mg 1 pill daily. Patient will continue with both medications at discharge. Education on both medications will be provided. Recommendation is for the patient to follow up with cardiology in the next 2 days to follow up this hospitalization and continue his care. Patient will require echocardiogram and cardiac stress test as an outpatient. Patient may require cardioversion in 3-4 weeks. This will be further addressed by cardiology. Education on chronic anti coagulation therapy an atrial fibrillation was provided. 3. Patient may have underlying alcoholic cardiomyopathy. This be further addressed by cardiology as an outpatient. Patient will need echocardiogram and cardiac stress tests with cardiology. Patient encouraged to quit alcohol. 4. Patient with history of hypertension in the past. At this time patient will continue with sotalol as directed above. Recommendations to maintain blood pressures less 150/80. Further adjustment can be done by cardiology. 5. Patient has hyperlipidemia. At discharge patient will continue with Lipitor 40 mg daily. 6. Patient has history of alcohol use. Patient has been drinking 6-9 beers at a time. No withdrawal some noted at this time. Alcohol cessation addressed in detail. Patient plans to quit. This is encouraged. 7. Patient may have underlying obstructive sleep apnea. Recommendation is for the patient to follow up with pulmonology as an outpatient to further evaluate. Patient will likely need sleep study as an outpatient to further address. 8. Aspirin 81 mg has been discontinued. 9. Patient appears to have otitis externa to the right ear. Patient will be provided medication to be use for 7 days. Diet: AHA Activity: Ad tatiana Time spent managing pt's care (in minutes): 55
--- NOTE | 2017-10-30 12:43 | EKG ---
Test Date: 2017-10-30 Test Time: 08:06:48 [employer] Senior Sergeant: HANSEL MEASUREMENT RESULTS: Intervals: Rate: 141 WV: 146 QRSD: 82 QT: 312 QTc: 477 [place]: P: 95 WV: 146 QRS: -18 T: 213 INTERPRETIVE STATEMENTS: atrial flutter Inferior infarct, age undetermined ST & T wave abnormality, consider lateral ischemia Abnormal ECG Compared to ECG 10/29/2017 08:38:50 Myocardial infarct finding now present T (T wave) deviation still present Electronically Signed On 10-30-17 12:43:14 CDT by Puneet Melara
--- NOTE | 2017-10-30 12:47 | EKG ---
Test Date: 2017-10-29 Test Time: 08:38:50 Hat Finishing Materials Preparer: TONY MEASUREMENT RESULTS: Intervals: Rate: 147 [place]: QRSD: 80 QT: 248 QTc: 388 [place]: P: 267 [place]: QRS: -29 T: 156 INTERPRETIVE STATEMENTS: Atrial flutter with 2:1 AV conduction Left ventricular hypertrophy with repolarization abnormality Marked ST abnormality, possible anterior subendocardial injury Abnormal ECG Compared to ECG 05/21/2007 10:45:09 Left ventricular hypertrophy now present Early repolarization now present ST (T wave) deviation now present Sinus rhythm no longer present Electronically Signed On 10-30-17 12:43:59 CDT by Puneet Melara
== END 2017-10-30 12:09 | disposition home or self-care (01) | DRG 310 ==
LOC: ER 08:22 → ERHOLD 10:20 → 2ND 10:57
PROVIDERS: ADMIT Family Medicine; ATTEND Family Medicine
DX: I48.1 Persistent atrial fibrillation (principal); E78.5 Hyperlipidemia, unspecified; E66.9 Obesity, unspecified; Z68.31 Body mass index [BMI] 31.0-31.9, adult; H60.501 Unspecified acute noninfective otitis externa, right ear; Z72.89 Other problems related to lifestyle; J06.9 Acute upper respiratory infection, unspecified; I10 Essential (primary) hypertension
CPT/HCPCS: 36415; 71045; 71046; 71275; 80048; 80061; 80076; 82550; 82553; 82962; 83735; 83880; 84439; 84443; 84481; 84484; 85025; 85610; 85730; 87070; 87081; 87804; 93005; 96361; 96365; 96372; 96375; 99285; J1650; J1720; J1940; J2543; Q9967

== ENCOUNTER 2017-11-28 06:41 | Day surgery (SDC) | payer OTHER ==
[2017-11-24 12:02] LABS: Absolute Lymphocytes (CBC) 2.3 K/uL (0.7-4.9); Absolute Monocytes 0.5 K/uL (0.1-1.3); Absolute Neutrophil 3.2 K/uL (1.8-8.0); Basophils % 0.7 % (0-1.3); Eosinophils % 1.3 % (0-4.4); Hematocrit 49.6 % (39.6-49.0); Lymphocytes % 37.1 % (15.3-44.8); MCH 29.2 pg (27.0-35.0); MCV 89.8 fL (80-100); MPV 9.5 fL (7.6-11.3); Monocytes % 8.3 % (3.3-12.3); RBC Red Blood Cell Count 5.52 M/uL (4.33-5.43)
[2017-11-24 12:08] LABS: Protime INR 2.12
[2017-11-24 12:25] LABS: BUN Blood Urea Nitrogen 14 mg/dL (7-18); Bicarbonate 30 mmol/L (21-32); Glucose Level 119 mg/dL (74-106); Potassium 4.2 mmol/L (3.5-5.1); Sodium Level 137 mmol/L (136-145)
[2017-11-28] MEDS ORDERED: NA CHLORIDE 0.9% 500 ML ONE (06:47)
[2017-11-28 07:10] VITALS: TEMP 98.7
[2017-11-28] MEDS ORDERED: MIDAZOLAM HCL 2 MG/2 ML INJ ONE (07:21)
[2017-11-28] MEDS ORDERED: MIDAZOLAM HCL 5 MG/5 ML INJ ONE (07:21)
[2017-11-28 08:51] VITALS: BP 119/67; O2SAT 99
--- NOTE | 2017-11-28 15:42 | EKG ---
Test Date: 2017-11-28 Test Time: 07:35:55 Filtration Plant Mechanic: HANSEL MEASUREMENT RESULTS: Intervals: Rate: 56 CT: 176 QRSD: 74 QT: 442 QTc: 426 [place]: P: 51 CT: 176 QRS: 21 T: -85 INTERPRETIVE STATEMENTS: Sinus bradycardia Nonspecific T wave abnormality Abnormal ECG Compared to ECG 10/30/2017 08:06:48 T-wave abnormality now present Atrial flutter no longer present Myocardial infarct finding no longer present ST (T wave) deviation no longer present Possible ischemia no longer present Electronically Signed On 11-28-17 15:40:30 CDT by Puneet Melara
--- NOTE | 2017-11-28 17:54 | OP ---
Date of Procedure: 11/28/2017 Surgeon: Puneet Melara MD Procedure: Direct current cardioversion. Indication For The Procedure: Atrial fibrillation. History Of Present Illness: Mr. Estes is a 62-year-old white male with new-onset atrial fibrillatio n, CHF secondary to this, positive stress test, has been on Xarelto and Betapace. Remains in sinus r hythm. We will plan to do a heart catheterization eventually on him, but we will brought him first o n Xarelto to do a cardioversion because of AFib with symptoms. Description Of Procedure: He was given 10 mg of Versed for IV sedation. He was given 1 shock of 100 joules and he converted to normal rhythm. There were no complications or blood loss. Postoperative Diagnosis: Atrial fibrillation converted to sinus rhythm. We will continue his present regimen. Plan heart catheterization eventually. We will hold the Xarel to for 48 hours prior to the heart catheterization. Co-mulling machine operator: Terra Lezama. Conscious sedation was 30 minutes. PARK/АНДРЕЙ Voice ID: [id number] Report ID: [id number]
== END 2017-11-28 08:51 | disposition home or self-care (01) ==
LOC: CCL 06:41
PROC: 5A2204Z Restoration of Cardiac Rhythm, Single (ICD-10-PCS; principal; 2017-11-28)
DX: I48.91 Unspecified atrial fibrillation (principal); I11.0 Hypertensive heart disease with heart failure; I50.9 Heart failure, unspecified; E78.5 Hyperlipidemia, unspecified; E78.6 Lipoprotein deficiency; F10.10 Alcohol abuse, uncomplicated; Z79.01 Long term (current) use of anticoagulants; Z88.6 Allergy status to analgesic agent; Z87.891 Personal history of nicotine dependence
CPT/HCPCS: 36415; 80048; 85025; 85610; 85730; 92960; 93005; J2250

== ENCOUNTER 2017-12-05 06:13 | Day surgery (SDC) | payer OTHER ==
[2017-12-05] MEDS ORDERED: NA CHLORIDE 0.9% 500 ML ONE (06:23)
[2017-12-05] MEDS ORDERED: MIDAZOLAM HCL 2 MG/2 ML INJ ONE ×2 (07:02→07:28)
[2017-12-05] MEDS ORDERED: HEPA 1000U/500MLS 1,000 UNIT/500 ML BAG IV ONE (07:03)
[2017-12-05] MEDS ORDERED: FENTANYL CITR 100 MCG/2 ML ONE (07:03)
[2017-12-05] MEDS ORDERED: LIDOCAINE 1% MPF 2 ML AMPULE ONE (07:22)
[2017-12-05] MEDS ORDERED: NA CHLORIDE 0.9% 0 ML ONE (07:57)
[2017-12-05] MEDS ORDERED: ATROPINE SULF 1 MG/10 ML SYR IV ONE (07:57)
[2017-12-05] MEDS ORDERED: NITROGLYCERIN/D5W 0 MG/0 ML BTL IV ONE (07:57)
[2017-12-05] MEDS ORDERED: NITROGLYCERIN 100 MCG/ML SYR (for cath lab use only) IV ONE (07:57)
[2017-12-05] MEDS ORDERED: NA CHLORIDE 0.9% 50 ML ONE (07:57)
[2017-12-05 11:59] VITALS: BP 137/91; O2SAT 98
[2017-12-05 12:31] VITALS: TEMP 98
--- NOTE | 2017-12-05 19:31 | OP ---
Date of Procedure: 12/05/2017 Surgeon: Puneet Melara MD School Social Worker: Sisi Ta. The patient will remain in the hospital for 2-4 hours for bedrest after the Angio-Seal. He will go h ome on his home medications including Xarelto. I will increase the Lipitor to 80 mg daily. He will see me in the office in the next 2 weeks. Indication For The Procedure: Chest pain and positive Cardiolite. Procedures: Heart catheterization, selective coronary arteriogram with left ventriculogram, and fail ed angioplasty of the RCA. The patient is known to me from the past, had recent new onset atrial fibrillation, on Xarelto. He h ad a cardioversion approximately a week ago showing normal rhythm post cardioversion. He still has a normal rhythm today, but part of his workup with a stress Cardiolite showing inferoapical ischemia. The patient has rare chest pain with exertion. Description Of Procedure: He was brought in outpatient, prepped and draped in the routine sterile fa shion. Given 2 mg of Versed for IV sedation. A 6-Belizean sheath was introduced in the right common f emoral artery successfully. Angio-Seal was used to close the case. Angiography using the Juan Jose ca theter showed a 20-30% mid LAD stenosis, left dominant system, mild to moderate plaquing in the circu mflex, collaterals from the LAD and the circumflex to the distal RCA that is nondominant, RCA was com pletely occluded, probably a 2 mm vessel. LV-gram showed normal ejection fraction with some minimal anteroapical hypokinesis. I had did attempt to do an angioplasty with a JR4 guide with side holes, a [place] wire. Attempt to cross the lesion for about 10 minutes. I used a [place] wire, were not succ essful. I could not cross the lesion with the wire was completely occluded long stenosis. The patie nt's artery from the RCA is nondominant on the right and we elected for medical therapy. Complications: None. Blood Loss: 5 cc. Final Diagnoses: Moderate coronary artery disease on the left, complete occlusion of the RCA on the right. Plan: Plan for medical therapy. Total conscious sedation was 45 minutes. Operators: Ricarda Murphy Voice ID: [id number] Report ID: [id number]
== END 2017-12-05 12:32 | disposition home or self-care (01) ==
LOC: CCL 06:13
PROC: 4A023N7 Measurement of Cardiac Sampling and Pressure, Left Heart, Percutaneous Approach (ICD-10-PCS; principal; 2017-12-05)
PROC: B201YZZ Plain Radiography of Multiple Coronary Arteries using Other Contrast (ICD-10-PCS; 2017-12-05)
PROC: B205YZZ Plain Radiography of Left Heart using Other Contrast (ICD-10-PCS; 2017-12-05)
PROC: 02703ZZ Dilation of Coronary Artery, One Artery, Percutaneous Approach (ICD-10-PCS; 2017-12-05)
DX: I25.110 Atherosclerotic heart disease of native coronary artery with unstable angina pectoris (principal); I25.82 Chronic total occlusion of coronary artery; I48.91 Unspecified atrial fibrillation; I10 Essential (primary) hypertension; E78.6 Lipoprotein deficiency; Z79.01 Long term (current) use of anticoagulants; Z87.891 Personal history of nicotine dependence; F10.10 Alcohol abuse, uncomplicated
CPT/HCPCS: 85347; 93458; C1760; C1893; J0583; J2001; J2250; J3010

== ENCOUNTER 2022-04-05 22:00 | Inpatient (IN) | payer OTHER ==
--- OUTSIDE RECORDS SUMMARY | 2022-04-05 22:02 | XMS REPORT | Continuity of Care Document ---
:1955 Author Organization [facility] t Address [address] [place] [address] Care Team Providers Name Role Phone OPAL LATIF Attending Clinician Unavailable Payers Payer Name Policy Type Policy Number Effective Date Expiration Date S ource MEDICARE PART A [id number] 2019 \T\ B 00:00:00 Problems This patient has no known problems. Allergies, Adverse Reactions, Alerts Allergy Allergy Status Severity Reaction(s) Onset Inactive Treating Comm ents Source Name Type Date Date Clinician NO KNOWN Drug Active [facility] ALLERGIE Class y [facility] Medications This patient has no known medications. Procedures This patient has no known procedures. Encounters Start End Encounter Admission Attending Care Care Encounter Source Date/Time Date/Time Type Type Clinicians Facility Department ID 2020-08-17 2020-08-17 Outpatient Gerald LATIF [facility] [id number] [facility] 14:50:00 14:50:00 OPAL [id number] [facility] 2020-08-17 2020-08-17 Outpatient Gerald LATIF [facility] [id number] [facility] 14:50:00 14:50:00 OPAL [facility] 2020-08-17 2020-08-17 Outpatient Gerald LATIF [facility] [id number] Univers 07:50:00 07:50:00 OPAL [facility] 2020-07-27 2020-07-27 Outpatient [facility] [id number] [facility] 15:10:00 15:10:00 [id number] [facility] 2020-07-27 2020-07-27 Outpatient Gerald LATIF [facility] [id number] [facility] 15:10:00 15:10:00 OPAL [facility] Results This patient has no known results.
[2022-04-05] MEDS ORDERED: METOPROLOL TARTRATE 5 MG/5 ML INJ IV ONE (22:29)
[2022-04-06] MEDS ORDERED: METOPROLOL TARTRATE 5 MG/5 ML INJ IV ONE (00:14)
[2022-04-06 00:16] LABS: Albumin 3.8 g/dL (3.4-5.0); Bilirubin Direct 0.1 mg/dL (0-0.2); Bilirubin Total 0.4 mg/dL (0.2-1.0); Magnesium 1.7 mg/dL (1.8-2.4); Potassium 3.5 mmol/L (3.5-5.1); Protein, Total 6.9 g/dL (6.4-8.2)
[2022-04-06 00:17] LABS: Troponin High Sensitivity 513.7 pg/mL (<58.9)
[2022-04-06 00:30] LABS: Absolute Lymphocytes (CBC) 1.5 K/uL (0.7-4.9); Hematocrit 45.2 % (39.6-49.0); MCV 90.3 fL (80-100); MPV 9.2 fL (7.6-11.3); RBC Red Blood Cell Count 5.01 M/uL (4.33-5.43)
[2022-04-06 00:31] LABS: Protime INR 1.45
[2022-04-06] MEDS ORDERED: MAGNESIUM SULFATE 1 gm IVPB 1 GM/100 ML BAG IV ONE (01:11)
--- NOTE | 2022-04-06 01:27 | EDPHYS ---
Physician Documentation [facility] Name: Onesimo Estes Age: 66 yrs Sex: Male : 1955 Arrival Date: 04/05/2022 Time: 22:05 Bed 6 Private MD: ED Physician Matt Lombardo HPI: 04/05 22:10 This 66 yrs old Male presents to ER via EMS with complaints of Chest Pain. cp 22:10 The patient or guardian reports chest pain that is located primarily in the substernal cp area. 22:10 Onset: tonight, while sitting on couch watching game. cp 22:10 The pain does not radiate. Associated signs and symptoms: Pertinent positives: cp shortness of breath, syncope, Pertinent negatives: abdominal pain, diaphoresis. The chest pain is described as sudden. Duration: The patient or guardian reports a single episode, that is now resolved. 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 History of a-fib that was cardioverted cp by DR Melara about 4 years ago. Not taking blood thinners. Takes unknown dosage of Sotolol. Historical: - Allergies: 22:37 Morphine; jb4 - Home Meds: 22:37 Sotalol Oral [Active]; statin [Active]; jb4 - PMHx: 22:37 afib; HTN; PVC; high cholesterol; jb4 - PSHx: 22:37 Left first toe; jb4 - Immunization history:: Adult Immunizations up to date. - Social history:: Smoking status: Patient denies any tobacco usage or history of. ROS: 22:15 Constitutional: Negative for body aches, chills, fever, poor PO intake. cp 22:15 Eyes: Negative for injury, pain, redness, and discharge, ENT: Negative for injury, cp pain, and discharge. 22:15 ENT: Negative for drainage from ear(s), ear pain, sore throat, difficulty swallowing, difficulty handling secretions. 22:15 Neck: Negative for pain with movement, pain at rest, stiffness. 22:15 Cardiovascular: Positive for chest pain, palpitations. 22:15 Respiratory: Negative for cough, wheezing. 22:15 Abdomen/GI: Negative for abdominal pain, nausea, vomiting, and diarrhea. 22:15 Back: Negative for pain at rest, pain with movement, radiated pain. 22:15 MS/extremity: Negative for injury or acute deformity. 22:15 Neuro: Positive for syncope, Negative for altered mental status, dizziness, headache, weakness. 22:15 All other systems are negative. Exam: 22:15 ECG was reviewed by the Attending Physician. cp 22:18 Constitutional: The patient appears in no acute distress, alert, awake, comfortable, cp non-diaphoretic, non-toxic, well developed, well nourished. 22:18 Head/Face: Normocephalic, atraumatic. cp 22:18 Eyes: Periorbital structures: appear normal, Pupils: equal, round, and reactive to light and accomodation, Extraocular movements: intact throughout, Conjunctiva: normal, no exudate, no injection, Sclera: no appreciated abnormality, Lids and lashes: appear normal, bilaterally. 22:18 ENT: External ear(s): are unremarkable, Ear canal(s): are normal, clear, TM's: dullness, bilaterally, Nose: is normal, Mouth: Lips: moist, Oral mucosa: pink and intact, moist, Posterior pharynx: Airway: no evidence of obstruction. 22:18 Neck: C-spine: vertebral tenderness, is not appreciated, crepitus, is not appreciated, ROM/movement: is normal, is supple, without pain, no range of motions limitations, no nuchal rigidity. 22:18 Chest/axilla: Inspection: normal, Palpation: is normal, no crepitus, no tenderness. 22:18 Cardiovascular: Rate: tachycardic, Rhythm: irregular, Edema: is not appreciated, JVD: is not appreciated. 22:18 Respiratory: the patient does not display signs of respiratory distress, Respirations: normal, no use of accessory muscles, no retractions, labored breathing, is not present, Breath sounds: are clear throughout, no decreased breath sounds, no stridor, no wheezing. 22:18 Abdomen/GI: Inspection: abdomen appears normal, Bowel sounds: active, all quadrants, Palpation: abdomen is soft and non-tender, in all quadrants. 22:18 Back: pain, is absent, ROM is normal. 22:18 Musculoskeletal/extremity: Exam is negative for decreased range of motion, deformity, injury. 22:18 Neuro: Orientation: to person, place \T\ time. Mentation: is normal, Cerebellar function: is grossly normal, Motor: moves all fours, strength is normal, Sensation: is normal. 04/06 02:15 ECG was reviewed by the Attending Physician. Vital Signs: 04/05 22:37 BP 137 / 96; Pulse 129; Resp 23; Temp 97.5(TE); Pulse Ox 97% on R/A; Weight 109.77 kg jb4 (R); Height 6 ft. 1 in. (185.42 cm) (R); Pain 0/10; 23:27 BP 131 / 74; Pulse 112; Resp 22; Pulse Ox 95% on R/A; jb4 04/06 00:15 BP 116 / 85; Pulse 110; Resp 17 S; Pulse Ox 98% on R/A; aa9 00:35 BP 116 / 85; Pulse 115; aa9 01:00 BP 111 / 91; Pulse 101; Resp 17; Pulse Ox 97% on R/A; jb4 02:15 BP 140 / 93; Pulse 103; Resp 12; Pulse Ox 97% on R/A; jb4 04/05 22:37 Body Mass Index 31.93 (109.77 kg, 185.42 cm) jb4 MDM: 04/05 22:11 Patient medically screened. cp 04/06 01:15 The patient was not given aspirin in the Emergency Department. Patient reports taking aspirin within the past 24 hours. 01:15 Data reviewed: vital signs, nurses notes, lab test result(s), EKG, radiologic studies, cp CT scan, plain films, I have discussed the patient's presentation/case with the attending Emergency Department Physician;. Test interpretation: by ED physician or midlevel provider: ECG, plain radiologic studies. Response to treatment: the patient's symptoms have markedly improved after treatment, and as a result, I will admit patient. Physician consultation: Albertina Tran PA-C was contacted at 01:10, regarding admission, to the ICU, patient's condition. 04/05 22:09 Order name: Basic Metabolic Panel cp 04/05 22:09 Order name: CBC with Diff cp 04/05 22:09 Order name: LFT's cp 04/05 22:09 Order name: Magnesium cp 04/05 22:09 Order name: NT PRO-BNP cp 04/05 22:09 Order name: PT-INR cp 04/05 22:09 Order name: Troponin HS cp 04/06 00:07 Order name: CREATININE WHOLE BLOOD; Complete Time: 00:51 EDMS 04/06 00:17 Order name: Basic Metabolic Panel; Complete Time: 00:51 EDMS 04/06 00:51 Interpretation: Normal except: GLUC 196; GFR 81. cp 04/06 00:17 Order name: Liver (Hepatic) Function; Complete Time: 00:51 EDMS 04/06 00:17 Order name: Troponin High Sensitivity; Complete Time: 00:51 EDMS 04/06 00:52 Interpretation: Abnormal: Troponin HS 513.7. cp 04/06 00:17 Order name: NT PRO-BNP; Complete Time: 00:51 EDMS 04/06 00:51 Interpretation: Abnormal: NT PRO-BNP 1074. 04/06 00:17 Order name: Magnesium; Complete Time: 00:51 EDMS 04/06 00:51 Interpretation: Abnormal: MG 1.7. 04/06 00:31 Order name: CBC with Automated Diff; Complete Time: 00:51 EDMS 04/06 00:52 Interpretation: Normal except: DILCIA% 79.0; LYM% 14.0; NEUT A 8.4. 04/05 22:09 Order name: XRAY Chest (1 view) 04/05 22:09 Order name: EKG; Complete Time: 02:04 04/05 22:09 Order name: Cardiac monitoring; Complete Time: 22:20 04/05 22:09 Order name: EKG - Nurse/Tech; Complete Time: 22:20 04/05 22:09 Order name: IV Saline Lock; Complete Time: 22:20 04/05 22:09 Order name: Labs collected and sent; Complete Time: 22:23 04/05 22:14 Order name: CT Aorta for Dissection 04/06 00:31 Order name: Protime (+INR); Complete Time: 00:51 EDMS 04/06 01:51 Order name: SARS RAPID aa9 04/06 02:48 Order name: SARS-COV-2 Antigen Rapid EDDC 04/05 22:09 Order name: O2 Per Protocol; Complete Time: 22:20 04/05 22:09 Order name: O2 Sat Monitoring; Complete Time: 22:20 04/05 22:48 Order name: Labs - recollect needed: blue and green top; Complete Time: 22:54 mw2 EC/01 22:15 Rate is 122 beats/min. Rhythm is irregular. QRS interval is normal. QT interval is cp normal. Interpreted by me. Reviewed by me. 04/06 02:15 Rate is 102 beats/min. Rhythm is irregular. QRS interval is normal at 86 msec. QT cp interval is normal. Interpreted by me. Reviewed by me. Administered Medications: 04/05 22:43 Drug: Metoprolol 5 mg Route: IVP; Site: right forearm; jb4 04/06 00:20 Drug: Metoprolol 5 mg Route: IVP; Site: right antecubital; aa9 00:35 Follow up: BP 116 / 85; Pulse 115 bpm; Response: No adverse reaction aa 01:15 Drug: Magnesium Sulfate 1 grams Route: IVPB; Infused Over: 1 hrs; Site: right forearm; jb4 01:28 Drug: Lovenox (enoxaparin) 1 mg/kg Route: Sub-Q; Site: right lower abdomen; jb4 03:01 Not Given (Physician Discretion): Aspirin Chewable Tablet 324 mg PO once; 81 mg tablets cp x 4 03:01 CANCELLED (Physician Discretion): PlaVIX (clopidogrel) 75 mg PO once cp Disposition: 05:35 Co-signature as Attending Physician, Matt Lombardo MD. rn Disposition Summary: 04/06/22 01:26 Hospitalization Ordered Hospitalization Status: Inpatient Admission cp Provider: Elsa Mata cp Condition: Stable cp Problem: new cp Symptoms: have improved cp Bed/Room Type: Standard cp Location: Intensive Care Unit(04/06/22 02:47) cg Room Assignment: 6-(04/06/22 02:47) cg Diagnosis - Subsequent non-ST elevation (NSTEMI) myocardial infarction cp - Unspecified atrial fibrillation cp Forms: - Medication Reconciliation Form cp - SBAR form cp Signatures: Dispatcher [employer] EDMatt Barger MD MD rn Page, Corey, PA PA cp Ellyn Santo RN RN Wilfred Amos RN RN jb4 Ger Luz mw2 Ling Wisdom RN RN aa9 Corrections: (The following items were deleted from the chart) 02:47 01:26 Telemetry/MedSurg (Inpatient) cp cg 02:47 01:26 cp cg 03:01 03:00 PlaVIX (clopidogrel) 75 mg PO once ordered. cp cp
--- NOTE | 2022-04-06 01:27 | ER ---
Nurse's Notes [facility] Name: Onesimo Estes Age: 66 yrs Sex: Male : 1955 Arrival Date: 04/05/2022 Time: 22:05 Bed 6 Private MD: Diagnosis: Subsequent non-ST elevation (NSTEMI) myocardial infarction;Unspecified atrial fibrillation Presentation: 04/05 22:29 Chief complaint: EMS states: Pt reports his heart was feeling funny, he tried to get jb4 and go to his when he passed out. When he woke the pain was gone. Coronavirus screen: At this time, the client does not indicate any symptoms associated with coronavirus-19. Ebola Screen: No symptoms or risks identified at this time. 22:29 Method Of Arrival: EMS: [facility] jb4 22:29 Initial Sepsis Screen: Does the patient meet any 2 criteria? HR > 90 bpm. Yes Does the jb4 patient have a suspected source of infection? No. Patient's initial sepsis screen is negative. Risk Assessment: Do you want to hurt yourself or someone else? Patient reports no desire to harm self or others. Onset of symptoms was April 05, 2022. 22:29 Acuity: JOANN 2 jb4 22:29 Transition of care: patient was not received from another setting of care. jb4 Historical: - Allergies: 22:37 Morphine; jb4 - Home Meds: 22:37 Sotalol Oral [Active]; statin [Active]; jb4 - PMHx: 22:37 afib; HTN; PVC; high cholesterol; jb4 - PSHx: 22:37 Left first toe; jb4 - Immunization history:: Adult Immunizations up to date. - Social history:: Smoking status: Patient denies any tobacco usage or history of. Screenin:30 Abuse screen: Denies threats or abuse. Nutritional screening: No deficits noted. jb4 Tuberculosis screening: No symptoms or risk factors identified. Fall Risk Fall in past 12 months (25 points). Total Ruvalcaba Fall Scale indicates Low Risk Score (25-44 pts). Fall prevention measures have been instituted. Side Rails Up X 2 Placed close to Nursing Station Frequent Obs/Assesments occuring Family Present and informed to notify staff if they need to leave bedside As available Patient and Family Educated on Fall Prevention Program and strategies. Assessment: 22:47 General: Appears in no apparent distress. comfortable, Behavior is calm, cooperative, jb4 appropriate for age. Pain: Denies pain. Neuro: Level of Consciousness is awake, alert, obeys commands, Oriented to person, place, time, situation. Cardiovascular: Patient's skin is warm and dry. Rhythm is atrial flutter. Respiratory: Airway is patent Respiratory effort is even, unlabored, Respiratory pattern is regular, symmetrical. GI: No signs and/or symptoms were reported involving the gastrointestinal system. : No signs and/or symptoms were reported regarding the genitourinary system. EENT: No signs and/or symptoms were reported regarding the EENT system. Derm: Skin is intact, Skin is pink, warm \T\ dry. Musculoskeletal: Circulation, motion, and sensation intact. Range of motion: intact in all extremities. 23:15 Reassessment: Patient appears in no apparent distress at this time. Patient and/or jb4 family updated on plan of care and expected duration. Pain level reassessed. Patient is alert, oriented x 3, equal unlabored respirations, skin warm/dry/pink. Pt back from CT. 23:48 Reassessment: Trop 513.7, Provider notified. vc1 04/06 00:00 Reassessment: Patient appears in no apparent distress at this time. Patient and/or jb4 family updated on plan of care and expected duration. Pain level reassessed. Patient is alert, oriented x 3, equal unlabored respirations, skin warm/dry/pink. 01:00 Reassessment: Patient appears in no apparent distress at this time. Patient and/or jb4 family updated on plan of care and expected duration. Pain level reassessed. Patient is alert, oriented x 3, equal unlabored respirations, skin warm/dry/pink. Vital Signs: 04/05 22:37 BP 137 / 96; Pulse 129; Resp 23; Temp 97.5(TE); Pulse Ox 97% on R/A; Weight 109.77 kg jb4 (R); Height 6 ft. 1 in. (185.42 cm) (R); Pain 0/10; 23:27 BP 131 / 74; Pulse 112; Resp 22; Pulse Ox 95% on R/A; jb4 04/06 00:15 BP 116 / 85; Pulse 110; Resp 17 S; Pulse Ox 98% on R/A; aa9 00:35 BP 116 / 85; Pulse 115; aa9 01:00 BP 111 / 91; Pulse 101; Resp 17; Pulse Ox 97% on R/A; jb4 02:15 BP 140 / 93; Pulse 103; Resp 12; Pulse Ox 97% on R/A; jb4 04/05 22:37 Body Mass Index 31.93 (109.77 kg, 185.42 cm) jb4 ED Course: 04/05 22:05 Patient arrived in ED. mw2 22:09 Des Collins PA is PHCP. cp 22:09 Matt Lombardo MD is Attending Physician. cp 22:10 Initial lab(s) drawn, by me, sent to lab. Inserted saline lock: 18 gauge in right jb4 forearm, using aseptic technique. Blood collected. 22:19 Wilfred Mejias RN is Primary Nurse. jb4 22:37 Arm band placed on right wrist. jb4 22:47 Triage completed. jb4 04/06 01:24 Elsa Mata MD is Hospitalizing Provider. cp 02:57 No provider procedures requiring assistance completed. Patient admitted, IV remains in jb4 place. Administered Medications: 04/05 22:43 Drug: Metoprolol 5 mg Route: IVP; Site: right forearm; jb4 04/06 00:20 Drug: Metoprolol 5 mg Route: IVP; Site: right antecubital; aa9 00:35 Follow up: BP 116 / 85; Pulse 115 bpm; Response: No adverse reaction aa9 01:15 Drug: Magnesium Sulfate 1 grams Route: IVPB; Infused Over: 1 hrs; Site: right forearm; jb4 01:28 Drug: Lovenox (enoxaparin) 1 mg/kg Route: Sub-Q; Site: right lower abdomen; jb4 03:01 Not Given (Physician Discretion): Aspirin Chewable Tablet 324 mg PO once; 81 mg tablets cp x 4 03:01 CANCELLED (Physician Discretion): PlaVIX (clopidogrel) 75 mg PO once cp Outcome: 01:26 Decision to Hospitalize by Provider. cp 02:58 Admitted to ICU accompanied by nurse, via wheelchair, room 6, with chart. jb4 02:58 Condition: stable 02:58 Discharge instructions given to patient, Instructed on the need for admit, Demonstrated understanding of instructions. 03:45 Patient left the ED. vc1 Signatures: Des Collins PA PA cp Bryson, James RN RN jb4 Ger Luz 2 Marlys Thrasher RN RN vc1 Ling Wisdom RN RN aa9 Corrections: (The following items were deleted from the chart) 04/05 23:15 23:15 Reassessment: Patient appears in no apparent distress at this time. Patient jb4 and/or family updated on plan of care and expected duration. Pain level reassessed. Patient is alert, oriented x 3, equal unlabored respirations, skin warm/dry/pink. jb4
[2022-04-06] MEDS ORDERED: ENOXAPARIN 80 MG/0.8 ML SQ ONE (01:28)
[2022-04-06] MEDS ORDERED: ENOXAPARIN 30 MG/0.3 ML SQ ONE (01:28)
[2022-04-06] MEDS ORDERED: ONDANSETRON 4 MG/2 ML VIAL IV PRN (01:55)
[2022-04-06] MEDS ORDERED: ACETAMINOPHEN 500 MG TAB PO PRN (01:55)
[2022-04-06] MEDS ORDERED: ACETAMINOPHEN 325 MG TABLET PO PRN (02:00)
--- NOTE | 2022-04-06 02:46 | P.HP ---
Certification for Inpatient Patient admitted to: Inpatient With expected LOS: >2 Midnights Patient will require the following post-hospital care: None Practitioner: I am a practitioner with admitting privileges, knowledge of patient current condition, hospital course, and medical plan of care. Services: Services provided to patient in accordance with Admission requirements found in Title 42 Section 412.3 of the Code of Federal Regulations Patient History Date of Service: 04/06/22 Primary Care Provider: Dontrell Reason for admission: NSTEMI History of Present Illness: Patient is a 66-year-old male with history of hypertension, hyperlipidemia, afib, and CAD who presented to the ED via EMS after syncopal episode. Patient states that he was at home watching TV when he noticed his heart started to feel funny. He stood up, got lightheaded, and experienced a syncopal episode. Patient reports that he has a previous diagnosis of A. fib, but was cardioverted back in 2018 and has not had issues with this since. He sees Dr. Melara. He was noted to be A. fib with rates in the 120s in the ED. EKG showed afib/flutter. He was given 2 rounds of 5 mg IV metoprolol which decreased his rates to the low 100s, but he remains in afib. Patient denies any chest pain. Troponin HS is 512. CT chest negative for aortic dissection or aneurysm, however did show cardiomegaly and coronary artery atherosclerosis. He was given aspirin and therapeutic Lovenox in the ED. Patient is admitted for further management. Allergies morphine Allergy (Verified 11/24/17 11:14) Unknown Home medications list reviewed: Yes Home Medications: Atorvastatin Calcium [Lipitor] 40 mg PO BEDTIME #30 tablet 10/30/17 Losartan Potassium [Cozaar] 100 mg PO DAILY 04/06/22 Sotalol HCl [Betapace*] 40 mg PO BID 6AM 6PM 04/06/22 - Past Medical/Surgical History Diabetic: No -: Hypertension -: Pre diabetes -: Hyperlipidemia -: Obesity -: right great toe surgery Psychosocial/ Personal History: Pt is - Family History Mother -: Heart disease Father -: Cancer Notes: Prostate/bladder CA - Social History Smoking Status: Never smoker Alcohol use: Yes CD- Drugs: No Caffeine use: Yes Place of Residence: Home Review of Systems 10-point ROS is otherwise unremarkable Cardiovascular: As per HPI Physical Examination - Physical Exam General: Alert, In no apparent distress, Obese HEENT: Atraumatic, PERRLA, EOMI, Sclerae nonicteric Neck: Supple, 2+ carotid pulse no bruit, No LAD, Without JVD or thyroid abnormality Respiratory: Clear to auscultation bilaterally, Normal air movement Cardiovascular: Regular rate/rhythm, Normal S1 S2 Gastrointestinal: Normal bowel sounds, No tenderness Musculoskeletal: No tenderness Integumentary: No rashes Neurological: Normal gait, Normal speech, Normal strength at 5/5 x4 extr, Normal tone, Normal affect - Studies Laboratory Data (last 24 hrs) 04/05/22 22:53: Sodium 138, Potassium 3.5, BUN 18, Creatinine 1.02, Glucose 196 H, Magnesium 1.7 L, Total Bilirubin 0.4, AST 35, ALT 70, Alkaline Phosphatase 66 04/05/22 22:20: PT 15.9 H, INR 1.45 04/05/22 22:20: WBC 10.70, Hgb 15.3, Hct 45.2, Plt Count 223 04/05/22 22:09: PT Cancelled, INR Cancelled 04/05/22 22:09: Magnesium Cancelled 04/05/22 22:09: WBC Cancelled, Hgb Cancelled, Hct Cancelled, Plt Count Cancelled 04/05/22 22:09: Sodium Cancelled, Potassium Cancelled, BUN Cancelled, Creatinine Cancelled, Glucose Cancelled, Total Bilirubin Cancelled, AST Cancelled, ALT Cancelled, Alkaline Phosphatase Cancelled Assessment and Plan - Problems (Diagnosis) (1) NSTEMI (non-ST elevated myocardial infarction) Current Visit: Yes Status: Acute (2) Atrial fibrillation Current Visit: Yes Status: Acute Qualifiers: Atrial fibrillation type: paroxysmal Qualified Code(s): I48.0 - Paroxysmal atrial fibrillation (3) Hyperlipidemia Current Visit: Yes Status: Chronic Qualifiers: Hyperlipidemia type: unspecified Qualified Code(s): E78.5 - Hyperlipidemia, unspecified (4) CAD (coronary artery disease) Current Visit: Yes Status: Acute Qualifiers: Coronary Disease-Associated Artery/Lesion type: [place] artery [place] vs. transplanted heart: [place] heart Associated angina: without angina Qualified Code(s): I25.10 - Atherosclerotic heart disease of [place] coronary artery without angina pectoris - Plan -Cardiology consult. Monitor on telemetry -NPO in case for cardiac catheterization. Last cath in 2018 did not require stents. -Patient reports negative stress test 1 year ago -Echo & lipid panel ordered -Aspirin and atorvastatin daily -Initial troponin 512. Trend serial cardiac enzymes. Patient denies chest pain. -Therapeutic lovenox every 12 hours -Monitor and replete electrolytes per protocol -Reconcile and continue home medications -Full code Discharge Plan: Home Plan to discharge in: Greater than 2 days - Advance Directives Does patient have a Living Will: No Does patient have a Durable POA for Healthcare: No - Code Status/Comfort Care Code Status Assessed: Yes (Full) Critical Care: No Time Spent Managing Pts Care (In Minutes): 50
[2022-04-06 02:48] LABS: SARS-CoV-2 Antigen Rapid Res Negative (Negative)
[2022-04-06] MEDS ORDERED: NA CHLORIDE 0.9% 1,000 ML IV SCH (03:00)
[2022-04-06 04:04] VITALS: BMI 31.9
[2022-04-06 06:01] LABS: CKMB Creatine Kinase MB 59.2 ng/mL (1.0-3.6)
[2022-04-06] MEDS: ASPIRIN EC 81 MG TAB PO SCH (06:35)
[2022-04-06] MEDS: SOTALOL HCL 80 MG TAB PO SCH ×2 (06:35→17:27)
[2022-04-06] MEDS ORDERED: POTASSIUM CL SA 10 MEQ TAB PO ONE (07:03)
--- NOTE | 2022-04-06 10:19 | RAD REPORT ---
EXAM DESCRIPTION: [place] Single View04/06/2022 2:41 am CLINICAL HISTORY: Chest pain COMPARISON: 2014 FINDINGS: The lungs appear clear of acute infiltrate. The heart is mildly enlarged IMPRESSION: No acute abnormalities displayed
[2022-04-06] MEDS: Enoxaparin 120 MG/0.8 ML SYR SQ SCH ×2 (12:13→20:55)
[2022-04-06] MEDS ORDERED: Enoxaparin 120 MG/0.8 ML SYR SQ SCH (13:30)
--- NOTE | 2022-04-06 13:48 | RAD REPORT ---
EXAM DESCRIPTION: CT - Angio Aorta For Dissection - 04/06/2022 12:45 am CLINICAL HISTORY: Chest pain COMPARISON: None Available. TECHNIQUE: CTA of the chest, abdomen, and pelvis obtained following IV administration of iodinated c ontrast . 3-D/MIP reformatted images available. This exam was performed according to our departmental dose-optimization program, which includes automated exposure control, adjustment of the mA and/or kV according to patient size and/or use of iterative reconstruction technique. FINDINGS: Chest: Pulmonary arteries: No filling defects identified in the pulmonary arteries to suggest pulmonary embo sebastian. Thyroid: No abnormalities of the visualized thyroid. Great Vessels: Great vessels have normal anatomic configuration. Thoracic Aorta: Normal caliber thoracic aorta with atherosclerotic calcification. No dissection aneur ysm. Heart: Coronary artery atherosclerosis. Cardiomegaly is pericardial effusion. Lymph Nodes: No enlarged mediastinal lymph nodes identified. Esophagus: Small hiatal hernia. Other: No additional findings. Lungs: Mild bilateral interlobular septal thickening. Linear left basilar opacities. Mild elevation l eft hemidiaphragm. Pleura: No pleural effusion or pneumothorax. Trachea/Airways: No abnormalities of the visualized trachea or airways. Abdomen: Liver: The liver has normal size and density. No intrahepatic mass or biliary dilatation. Gallbladder: No calcified gallstones. Spleen, Pancreas, and Adrenal Glands: The spleen, pancreas, and adrenal glands are unremarkable. Kidneys: The kidneys have normal size without evidence of solid mass or hydronephrosis. Vasculature: Normal caliber abdominal aorta. Mild aortoiliac atherosclerosis. The visceral and renal arteries are widely common iliac, external iliac, common femoral, and proximal superficial femoral ar teries. The internal iliac and profunda femoral arteries are patent. Portal vein is patent. IVC is normal caliber. Stomach: Small hiatal hernia. Other: No free intraperitoneal air. No free fluid or lymphadenopathy. Pelvis: Bladder: Urinary bladder is unremarkable. Bowel: No dilated loops of large or small bowel. Appendix: Normal appendix. Pelvis: Significantly enlarged prostate. Bones: Multilevel endplate spondylosis and facet narrowing, facet arthropathy. Bridging anterior oste ophytes mid and lower thoracic spine. Osteoarthritic changes hips. Spurring of the sacroiliac joints. IMPRESSION: 1. No evidence of aortic dissection or aneurysm. No pulmonary embolus. 2. Cardiomegaly with coronary artery atherosclerosis. 3. Mild bilateral interlobular septal thickening may be related to pulmonary edema. 4. Linear left basilar opacities may represent atelectasis. 5. Significantly enlarged prostate. 6. Small hiatal hernia. Electronically signed by: Dheeraj Carpenter 04/06/2022 1:03 AM CDT Due to temporary technical issues with the PACS/Fluency reporting system, reports are being signed by the in house radiologists without review as a courtesy to insure prompt reporting. The interpreting radiologist is fully responsible for the content of the report.
[2022-04-06] MEDS: ATORVASTATIN 40 MG TAB PO SCH (20:55)
[2022-04-06] MEDS ORDERED: Magnesium Sulfate 2gm IVPB 2 G/50 ML BAG IV ONE (22:53)
--- NOTE | 2022-04-06 23:19 | P.PN ---
Date of Service: 04/06/22 Giovanny ruiz was called at 2234 for patient. He was noted to be in sustained vtach with rate of 196. He was previously in [place] throughout the evening. Patient was awake alert and oriented x 3 during the vtach, which lasted about 2 minutes. He denied any chest pain. He spontaneously converted back to NSR with rate in the 60s with occasional PVCs. Cardiology was contacted and recommended 2 grams of magnesium and continued monitoring. Repeat BMP mag pending. BP stable.
[2022-04-06 23:35] LABS: Magnesium 1.9 mg/dL (1.8-2.4); Potassium 3.7 mmol/L (3.5-5.1)
[2022-04-07 05:52] LABS: Absolute Lymphocytes (CBC) 1.9 K/uL (0.7-4.9); Hematocrit 39.9 % (39.6-49.0); Lymphocytes % 26.5 % (15.3-44.8); MCV 89.7 fL (80-100); RBC Red Blood Cell Count 4.45 M/uL (4.33-5.43)
--- NOTE | 2022-04-07 06:00 | EKG ---
Test Date: 2022-04-05 Test Time: 22:09:08 Respite Care Provider: STONEY MEASUREMENT RESULTS: Intervals: Rate: 122 MS: QRSD: 92 QT: 330 QTc: 470 Isabel[place]: P: MS: QRS: 33 T: 180 INTERPRETIVE STATEMENTS: Atrial flutter with variable AV block with premature ventricular or aberrantly conducted complexes Marked ST abnormality, possible lateral subendocardial injury Abnormal ECG Compared to ECG 11/28/2017 07:35:55 Ventricular premature complex(es) now present ST (T wave) deviation now present Sinus bradycardia no longer present T-wave abnormality no longer present Electronically Signed On 04-07-22 05:59:54 CDT by Puneet Melara
--- NOTE | 2022-04-07 06:00 | EKG ---
Test Date: 2022-04-06 Test Time: 02:10:48 Library Circulation Assistant: STONEY MEASUREMENT RESULTS: Intervals: Rate: 102 WA: QRSD: 86 QT: 342 QTc: 445 Tell: P: WA: QRS: 18 T: 166 INTERPRETIVE STATEMENTS: Atrial flutter with variable AV block with premature ventricular or aberrantly conducted complexes ST & T wave abnormality, consider lateral ischemia Abnormal ECG Compared to ECG 04/05/2022 22:09:08 Possible ischemia now present ST (T wave) deviation still present Electronically Signed On 04-07-22 05:59:52 CDT by Puneet Melara
[2022-04-07 06:11] LABS: Magnesium 2.1 mg/dL (1.8-2.4); Phosphorus 2.8 mg/dL (2.5-4.9)
--- NOTE | 2022-04-07 07:00 | ECHO ---
HEIGHT: 6 ft 1 in WEIGHT: 242 lb 0.023 oz DATE OF STUDY: 04/06/[address]: Albertina Tran 2-DIMENSIONAL: YES M.MODE: YES DOPPLER: YES COLOR FLOW: YES TDS: NO PORTABLE: YES DEFINITY: NO BUBBLE STUDY: NO DIAGNOSIS: NSTEMI CARDIAC HISTORY: CATHERIZATION: NO SURGERY: NO PROSTHETIC VALVE: NO PACEMAKER: NO MEASUREMENTS (cm) DIASTOLIC (NORMALS) SYSTOLIC (NORMALS) IVSd 1.3 (0.6-1.2) LA Diam 3.3 (1.9-4.0) LVEF 45% LVIDd 6.4 (3.5-5.7) LVIDs 5.0 (2.0-3.5) %FS 2.3% LVPWd 1.3 (0.6-1.2) Ao Diam 3.3 (2.0-3.7) 2 DIMENSIONAL ASSESSMENT: RIGHT ATRIUM: NORMAL LEFT ATRIUM: NORMAL RIGHT VENTRICLE: NORMAL LEFT VENTRICLE: DILATED TRICUSPID VALVE: NORMAL MITRAL VALVE: NORMAL PULMONIC VALVE: NORMAL AORTIC VALVE: NORMAL PERICARDIAL EFFUSION: NONE AORTIC ROOT: NORMAL LEFT VENTRICULAR WALL MOTION: MILD GLOBAL HYPOKINESIS. DOPPLER/COLOR FLOW: NORMAL. COMMENTS: MILD GLOBAL HYPOKINESIS. LEFT VENTRICULAR DILATATION. EJECTION FRACTION 43%. TECHNOLOGIST: ALANIS DURHAM
[2022-04-07] MEDS: SOTALOL HCL 80 MG TAB PO SCH ×2 (07:43→17:02)
[2022-04-07] MEDS: Enoxaparin 120 MG/0.8 ML SYR SQ SCH ×2 (08:41→21:29)
[2022-04-07] MEDS: ASPIRIN EC 81 MG TAB PO SCH (08:41)
--- NOTE | 2022-04-07 13:09 | P.PN ---
Subjective Date of Service: 04/07/22 Patient has sustained V. tach. He said he became lethargic and was not able to respond to apparently. He had similar episode when he passed out at home. Plan to transfer to [facility] for cardiology evaluation-ignition specialist. Review of Systems 10-point ROS is otherwise unremarkable Physical Examination - Vital Signs Temperature: 97.4 F Blood Pressure: 151/93 Pulse: 65 Respirations: 17 Pulse Ox (%): 99 - Physical Exam General: Alert, In no apparent distress, Oriented x3 HEENT: Atraumatic, PERRLA, EOMI Neck: Supple, JVD not distended Respiratory: Clear to auscultation bilaterally, Normal air movement Cardiovascular: Regular rate/rhythm, Normal S1 S2 Gastrointestinal: Normal bowel sounds, No tenderness Musculoskeletal: No tenderness Integumentary: No rashes Neurological: Normal speech, Normal tone, Normal affect Lymphatics: No axilla or inguinal lymphadenopathy - Studies Medications List Reviewed: Yes Assessment & Plan - Problems (Diagnosis) (1) Syncope and collapse Current Visit: Yes Status: Acute (2) Sustained ventricular tachycardia Current Visit: Yes Status: Acute (3) Atrial fibrillation Current Visit: Yes Status: Acute Qualifiers: Atrial fibrillation type: paroxysmal Qualified Code(s): I48.0 - Paroxysmal atrial fibrillation (4) CAD (coronary artery disease) Current Visit: Yes Status: Acute Qualifiers: Coronary Disease-Associated Artery/Lesion type: [place] artery [place] vs. transplanted heart: [place] heart Associated angina: without angina Qualified Code(s): I25.10 - Atherosclerotic heart disease of [place] coronary artery without angina pectoris (5) Cardiomyopathy Current Visit: No Status: Suspected Qualifiers: Cardiomyopathy type: alcoholic Qualified Code(s): I42.6 - Alcoholic cardiomyopathy - Plan -Cardiology consult appreciated; Vtach-transfer to [facility] -Aspirin and atorvastatin daily -Full code -Transfer to [facility] for ignition specialist evaluation. Discharge Plan: Other Plan to discharge in: Greater than 2 days - Advance Directives Does patient have a Living Will: No Does patient have a Durable POA for Healthcare: No - Code Status/Comfort Care Code Status Assessed: Yes Code Status: Full Code Critical Care: No Time Spent Managing PTS Care (In Minutes): 35
[2022-04-07] MEDS ORDERED: MORPHINE 2 MG/ML SYR IV PRN (16:17)
[2022-04-07] MEDS ORDERED: METHYLPREDNISOLONE 40 MG INJ ONE (16:45)
[2022-04-07] MEDS ORDERED: DIPHENHYDRAMINE 50 MG/ML VIAL ONE (16:46)
[2022-04-07] MEDS ORDERED: METHYLPREDNISOLONE 125 MG INJ IV ONE (17:00)
[2022-04-07] MEDS ORDERED: DIPHENHYDRAMINE 50 MG/ML VIAL IV ONE (17:00)
--- NOTE | 2022-04-07 17:47 | RAD REPORT ---
EXAM DESCRIPTION: RAD - Hip Right 2 View - 04/07/2022 5:34 pm CLINICAL HISTORY: rule out fracture Pain, right hip COMPARISON: No comparisons FINDINGS: Mild osteoarthritis affects the right hip. No fracture, dislocation or AVN.
[2022-04-07] MEDS: ATORVASTATIN 40 MG TAB PO SCH (21:29)
[2022-04-08 03:58] LABS: Absolute Lymphocytes (CBC) 1.9 K/uL (0.7-4.9); Hematocrit 39.1 % (39.6-49.0); MCV 90.3 fL (80-100); MPV 8.9 fL (7.6-11.3); RBC Red Blood Cell Count 4.33 M/uL (4.33-5.43)
[2022-04-08] MEDS: SOTALOL HCL 80 MG TAB PO SCH ×2 (06:00→16:59)
[2022-04-08] MEDS: Enoxaparin 120 MG/0.8 ML SYR SQ SCH ×3 (08:31→20:44)
[2022-04-08] MEDS: ASPIRIN EC 81 MG TAB PO SCH (08:32)
[2022-04-08] MEDS: ACETAMINOPHEN 325 MG TABLET PO PRN ×2 (08:38→19:50)
--- NOTE | 2022-04-08 16:04 | P.PN ---
Date of Service: 04/08/22 Subjective Awaiting transfer; no new complaints; also with right buttock pain; hip Xray negative Review of Systems 10-point ROS is otherwise unremarkable Physical Examination - Vital Signs reviewed - Physical Exam General: Alert, In no apparent distress, Oriented x3 Respiratory: Clear to auscultation bilaterally, Normal air movement Cardiovascular: Regular rate/rhythm, Normal S1 S2 Gastrointestinal: Normal bowel sounds, No tenderness Neurological: Normal speech, Normal tone, Normal affect Assessment & Plan - Problems (Diagnosis) (1) Syncope and collapse Current Visit: Yes Status: Acute (2) Sustained ventricular tachycardia Current Visit: Yes Status: Acute (3) Atrial fibrillation Current Visit: Yes Status: Acute Qualifiers: Atrial fibrillation type: paroxysmal Qualified Code(s): I48.0 - Paroxysmal atrial fibrillation (4) CAD (coronary artery disease) Current Visit: Yes Status: Acute Qualifiers: Coronary Disease-Associated Artery/Lesion type: [place] artery [place] vs. transplanted heart: [place] heart Associated angina: without angina Qualified Code(s): I25.10 - Atherosclerotic heart disease of [place] coronary artery without angina pectoris (5) Cardiomyopathy Current Visit: No Status: Suspected Qualifiers: Cardiomyopathy type: alcoholic Qualified Code(s): I42.6 - Alcoholic cardiomyopathy (6) Fall with buttock hematoma Current Visit: Yes Status: Acute - Plan Continue with POC as mentioned below: -Cardiology consult appreciated; Sustained Vtach-transfer to tertiary care facility -Sotalol and anticoagulation -Full code -Transfer to [facility] for community health specialist evaluation. Discharge Plan: Other Plan to discharge in: Greater than 2 days - Advance Directives Does patient have a Living Will: No Does patient have a Durable POA for Healthcare: No - Code Status/Comfort Care Code Status Assessed: Yes Code Status: Full Code Critical Care: No Time Spent Managing PTS Care (In Minutes): 35
--- NOTE | 2022-04-08 19:00 | CON ---
Date of Consultation: 04/07/2022 Reason For Consultation: Atrial flutter. History Of Present Illness: Mr. Estes is 66, he is known to have paroxysmal atrial fibrillation, wh ich was controlled on sotalol 40 b.i.d. He does not tolerate 80 b.i.d. because of severe bradycardia . Apparently, he had 5 beers and in night he went back into atrial fibrillation/flutter with a rapid ventricular response. He was placed on Lovenox, aspirin, Lipitor, and sotalol was increased to 80 b .i.d. He is back in sinus rhythm and feeling much better. When he had atrial fibrillation, he had p alpitations and shortness of breath with it. Denied chest pain, nausea, vomiting, diaphoresis, PND, orthopnea, pedal edema, or syncope. Past Medical History: Includes hypertension, dyslipidemia, and paroxysmal atrial fibrillation. Allergies: HE IS ALLERGIC TO MORPHINE. Medications: At home include Lipitor losartan, aspirin, and sotalol 40 b.i.d. Physical Examination: General: When I saw him, he was in sinus rhythm with slightly improved QT interval and occasional PV Cs. He was asymptomatic. HEENT: Negative. Neck: Supple with no bruit. Chest: Clear. Cardiac: Regular rhythm and rate. No murmurs, gallops, or rubs. Abdomen: Benign. Extremities: No clubbing, cyanosis, or edema. Diagnostic Data: Include mildly increased BNP of 1074. Initial EKG with atrial fibrillation/flutter at a rate of 110. Chest x-ray is negative. Echocardiogram is pending. Impression And Plan: Recurrent atrial fibrillation, not on sotalol 80 b.i.d. with premature ventricu lar contractions and increased QT interval. I suggest we go down on his sotalol back to 40 b.i.d. an d see what the echocardiogram shows and make a decision later. He is known to have coronary artery d isease with 100% right coronary artery with some mild plaquing in the left. He had a recent stress t est about 3 years ago and it was normal. His last echocardiogram a couple of years ago showed some m ild left ventricular dilatation with normal ejection fraction. We will continue to follow. PARK/АНДРЕЙ Voice ID: [id number] Report ID: [id number]
--- NOTE | 2022-04-08 19:31 | PN ---
Date of Progress Note: 04/08/2022 Mr. Estes's main problem is recurrent atrial fibrillation, intolerant to sotalol even at slow dose o f 40 b.i.d. still has slightly increased QT, multiple PVCs, occasional ventricular tachycardia, redu yecenia ejection fraction, LV dilatation. Planning transfer to [facility]. He has already been accepted. Bed is not available yet. He is still awaiting transfer. He is asymptomatic today. We w ill continue present regimen. PARK/АНДРЕЙ Voice ID: [id number] Report ID: [id number]
[2022-04-08] MEDS: ATORVASTATIN 40 MG TAB PO SCH (19:50)
--- NOTE | 2022-04-08 20:26 | PN ---
Date of Progress Note: 04/07/2022 Mr. Estes is 66, came in with the recurrent atrial fibrillation. Sotalol was increased to 80 b.i.d. He was noted to have increased QT and PVCs and had 2 episodes of ventricular tachycardia, the last one lasted about 20 seconds. We decided to decrease his sotalol to 40 b.i.d. Echocardiogram showed reduced ejection fraction about 40% to 45% he had. An EP consultation for possible defibr illator and possible ablation. I discussed the case with Dr. Rolly Pike at [facility] who acc epted him in transfer. Case was discussed with the family and Dr. Mata. For now, continue sotalol a t 40 b.i.d. PARK/АНДРЕЙ Voice ID: [id number] Report ID: [id number]
[2022-04-09] MEDS: ACETAMINOPHEN 325 MG TABLET PO PRN ×3 (03:56→16:56)
[2022-04-09 04:25] LABS: Absolute Lymphocytes (CBC) 1.8 K/uL (0.7-4.9); Hematocrit 38.8 % (39.6-49.0); Lymphocytes % 26.2 % (15.3-44.8); MCV 90.1 fL (80-100); MPV 9.1 fL (7.6-11.3); RBC Red Blood Cell Count 4.31 M/uL (4.33-5.43)
[2022-04-09 04:39] LABS: Potassium 4.1 mmol/L (3.5-5.1)
[2022-04-09 05:19] LABS: Specific Gravity 1.013 (1.005-1.030); Urine Bilirubin NEGATIVE (Negative); Urine Blood Negative (Negative); Urine Clarity Clear (Clear); Urine Color Light-Yellow (Yellow); Urine Glucose NEGATIVE (Negative); Urine Mucus Slight /HPF (None Seen); Urine Protein NEGATIVE (Negative); Urine RBC <5 /HPF (None Seen); Urine Urobilinogen Normal (Normal)
[2022-04-09] MEDS: SOTALOL HCL 80 MG TAB PO SCH ×2 (06:00→16:57)
[2022-04-09] MEDS: Enoxaparin 120 MG/0.8 ML SYR SQ SCH ×2 (09:06→21:55)
[2022-04-09] MEDS: ASPIRIN EC 81 MG TAB PO SCH (09:06)
[2022-04-09] MEDS ORDERED: Magnesium Sulfate 2gm IVPB 2 G/50 ML BAG IV ONE (13:23)
[2022-04-09 13:54] LABS: Magnesium 2.1 mg/dL (1.8-2.4)
[2022-04-09] MEDS ORDERED: NA CHLORIDE 0.9% 1,000 ML ONE (20:36)
[2022-04-09] MEDS ORDERED: D5W 100 ML IV ONE (20:57)
[2022-04-09] MEDS: ATORVASTATIN 40 MG TAB PO SCH ×2 (21:00→21:54)
[2022-04-09] MEDS ORDERED: MAGNESIUM SULFATE 1 gm IVPB 2 GM/200 ML BAG IV ONE (21:03)
[2022-04-09] MEDS ORDERED: LIDOCAINE/D5W 2,000 MG/500 ML BAG IV SCH (21:15)
--- NOTE | 2022-04-09 21:56 | P.PN ---
Date of Service: 04/09/22 I received a call at 2027 that patient was in sustained vtach with rate of 237, pulse lost, code blue was called. When I arrived, patient had been cardioverted at 150 joules then 200 joules. He went into vfib and was given epinephrine. CPR was performed. Pulse returned, patient was awake but continued to have runs of vtach. He was then transferred up to ICU. Dr. Melara arrived. Patient went into vtach without pulse again, was cardioverted with 200 joules and returned to NSR. He was then started on amiodarone, lidocaine, and magnesium drips. BP has been stable in 110s/90s. Attempts have been made to expedite transfer to [facility]. BMP, mag, and CBC ordered. Dr. Mata notified.
[2022-04-09] MEDS ORDERED: MIDAZOLAM HCL 2 MG/2 ML INJ IV ONE (22:15)
[2022-04-09 22:16] LABS: Absolute Lymphocytes (CBC) 3.4 K/uL (0.7-4.9); Hematocrit 38.8 % (39.6-49.0); Lymphocytes % 35.9 % (15.3-44.8); MCV 90.8 fL (80-100); MPV 9.3 fL (7.6-11.3); RBC Red Blood Cell Count 4.27 M/uL (4.33-5.43)
[2022-04-09] MEDS ORDERED: MIDAZOLAM HCL 2 MG/2 ML INJ ONE (22:34)
[2022-04-09 22:35] LABS: Albumin 3.4 g/dL (3.4-5.0); Bilirubin Total 0.6 mg/dL (0.2-1.0); Magnesium 2.2 mg/dL (1.8-2.4); Phosphorus 3.9 mg/dL (2.5-4.9); Potassium 3.2 mmol/L (3.5-5.1); Protein, Total 6.4 g/dL (6.4-8.2)
[2022-04-09] MEDS ORDERED: POTASSIUM 25 MEQ EFFERV TAB ONE (22:50)
[2022-04-09] MEDS ORDERED: KCL 20 MEQ/100 mL IVPB 100 ML IV ONE (22:55)
[2022-04-09] MEDS: KCL 20 MEQ/100 mL IVPB 20 MEQ/100 ML BAG IV SCH (23:07)
[2022-04-10] MEDS: KCL 20 MEQ/100 mL IVPB 20 MEQ/100 ML BAG IV SCH (00:06)
[2022-04-10] MEDS ORDERED: AMIODARONE IN DEXTROSE,ISO-OSM 360 MG/200 ML BAG IV ONE ×2 (01:20→09:49)
[2022-04-10] MEDS ORDERED: AMIODARONE HCL 900 MG in Dextrose 5%-Water 482 ML IV SCH (02:00)
[2022-04-10 05:31] LABS: Magnesium 2.4 mg/dL (1.8-2.4); Potassium 4.1 mmol/L (3.5-5.1)
[2022-04-10] MEDS: ACETAMINOPHEN 325 MG TABLET PO PRN (05:50)
[2022-04-10] MEDS: Enoxaparin 120 MG/0.8 ML SYR SQ SCH (09:00)
[2022-04-10 09:29] VITALS: TEMP 98.4
[2022-04-10 09:41] VITALS: O2SAT 100
[2022-04-10] MEDS: ASPIRIN EC 81 MG TAB PO SCH (09:45)
[2022-04-10] MEDS ORDERED: DEXTROSE IV ONE (10:14)
[2022-04-10] MEDS ORDERED: LIDOCAINE IV ONE (10:14)
[2022-04-10] MEDS ORDERED: LIDOCAINE 1% 20 ML MDV IV ONE (10:14)
[2022-04-10 10:57] VITALS: BP 150/76
--- NOTE | 2022-04-10 18:14 | PN ---
Date of Progress Note: 04/09/2022 Mr. Estes had been admitted initially with paroxysmal atrial fibrillation, responded to sotalol whic h was stopped because of ventricular tachycardia episodes and prolonged QT. He has an ejection fract ion of 35% to 40%, 100% [place] old RCA approximately 2 years ago. No chest pain. Worsening congesti ve heart failure. Case was discussed initially with Dr. Pike and the plan was to transfer him to [facility] for an ablation and a possible defibrillator; however, he had a cardiac arre st with ventricular fibrillation, ventricular tachycardia requiring multiple shocks, CPR. After cons ultation with Dr. Pike in [place], we decided to put him on IV amiodarone bolus and drip, IV lidocai ne bolus and drip, and we will try to expedite his transfer to [facility]. PARK/АНДРЕЙ Voice ID: [id number] Report ID: [id number]
--- NOTE | 2022-04-10 18:23 | PN ---
Date of Progress Note: 04/10/2022 Mr. Estes on 04/09/2022 underwent multiple shocks for ventricular tachycardia and ventricular fibril lation, CPRs, was finally placed on IV amiodarone drip after 150 mg bolus with 1 mg/minute. He recei harris also 100 mg bolus of lidocaine with 1 mg/minute and overnight he has not had any further ventricu lar tachycardia. [facility] still had no bed, I felt more comfortable transferring the patie nt some where else, he ended up being accepted in [facility] in [place]. The case was discussed with Dr. Tristian angel. He knows the plan to hopefully do an ablation, may be a defibrillator for CAD, CHF and ventric ular tachycardia with cardiac arrest. We will see the patient after he gets discharged from [facility] . PARK/АНДРЕЙ Voice ID: [id number] Report ID: [id number]
== END 2022-04-10 10:15 | disposition short-term general hospital (02) | DRG 280 ==
LOC: ER 22:00 → ERHOLD 04-06 01:41 → 3RD-ICU 04-06 03:00 → 4TH 04-06 14:00 → 3RD-ICU 04-09 20:53
PROVIDERS: ADMIT Hospitalist; ATTEND Hospitalist
PROC: 5A12012 Performance of Cardiac Output, Single, Manual (ICD-10-PCS; principal; 2022-04-09)
DX: I21.4 Non-ST elevation (NSTEMI) myocardial infarction (principal); I46.2 Cardiac arrest due to underlying cardiac condition; I42.6 Alcoholic cardiomyopathy; I47.20 Ventricular tachycardia, unspecified; I48.92 Unspecified atrial flutter; I48.0 Paroxysmal atrial fibrillation; E78.5 Hyperlipidemia, unspecified; I49.3 Ventricular premature depolarization; I11.0 Hypertensive heart disease with heart failure; I50.9 Heart failure, unspecified; I25.10 Atherosclerotic heart disease of native coronary artery without angina pectoris; S30.0XXA Contusion of lower back and pelvis, initial encounter; R55 Syncope and collapse; Z79.01 Long term (current) use of anticoagulants; Z88.5 Allergy status to narcotic agent; Z79.82 Long term (current) use of aspirin; Z79.899 Other long term (current) drug therapy; Z20.822 Contact with and (suspected) exposure to COVID-19; W18.30XA Fall on same level, unspecified, initial encounter; Y93.9 Activity, unspecified; Y92.9 Unspecified place or not applicable
CPT/HCPCS: 36415; 71045; 71275; 74175; 80048; 80053; 80061; 80076; 81001; 82550; 82553; 82565; 83735; 83880; 84100; 84443; 84484; 85025; 85610; 87811; 93005; 93306; 96372; 99285; J0282; J1200; J1650; J2001; J2250; J2270; J2920; J3475; J3480; J7030; J7060; Q9967